=== PATIENT | female | born 1990 | race Caucasian/White ===

== ENCOUNTER 2017-09-24 15:48 | Emergency (ER) | payer MEDICAID ==
--- NOTE | 2017-09-24 16:59 | ED ---
Abdominal Pain HPI - General Chief Complaint: Abdominal Pain Stated Complaint: Abd Pain Time Seen by Provider: 09/24/17 16:03 Source: patient, RN notes reviewed Mode of arrival: ambulatory Limitations: no limitations - History of Present Illness Initial Comments: 27-year-old female presents emergency Department chief complaint right-sided abdominal patient states it started earlier this morning. She states it is that it waxes and wanes and states the pain is very intense at times. Patient' s no history kidney stones. Denies any dysuria, hematuria, urinary frequency. Denies any nausea vomiting diarrhea constipation. She states nothing really makes the pain feel better but states that bending over, makes pain worse. Patient states that she's had 2 prior C-sections and denies any current chest emergency. - Related Data Previous Rx's Medication Instructions Recorded Ciprofloxacin HCl [Cipro] 500 mg PO Q12HR #10 tablet 09/24/17 Allergies Allergy/AdvReac Type Severity Reaction Status Date / Time Penicillins Allergy Rash/Hives Verified 09/24/17 16:20 Review of Systems ROS Statement: Those systems with pertinent positive or pertinent negative responses have been documented in the HPI. ROS Other: All systems not noted in ROS Statement are negative. Past Medical History Past Medical History: No Reported History History of Any Multi-Drug Resistant Organisms: None Reported Past Surgical History: Breast Surgery, Section Past Anesthesia/Blood Transfusion Reactions: No Reported Reaction Past Psychological History: No Psychological Hx Reported Smoking Status: Never smoker Past Alcohol Use History: None Reported Past Drug Use History: None Reported - Past Family History Mother Family Medical History: No Reported History General Exam Limitations: no limitations General appearance: alert, in no apparent distress Head exam: Present: atraumatic, normocephalic, normal inspection Respiratory exam: Present: normal lung sounds bilaterally. Absent: respiratory distress, wheezes, rales, rhonchi, stridor Cardiovascular Exam: Present: regular rate, normal rhythm, normal heart sounds. Absent: systolic murmur, diastolic murmur, rubs, gallop, clicks GI/Abdominal exam: Present: soft, tenderness (Mild right-sided abdominal tenderness), normal bowel sounds. Absent: distended, guarding, rebound, rigid Back exam: Absent: CVA tenderness (R), CVA tenderness (L) Skin exam: Present: warm, dry, intact, normal color. Absent: rash Course Vital Signs 09/24/17 09/24/17 09/24/17 15:53 16:34 18:31 Temperature 98.5 F 97.9 F Pulse Rate 88 76 77 Respiratory 18 17 18 Rate Blood Pressure 182/88 154/86 147/75 O2 Sat by Pulse 98 99 95 Oximetry 09/24/17 19:08 Temperature 98.5 F Pulse Rate 88 Respiratory 16 Rate Blood Pressure 137/74 O2 Sat by Pulse 98 Oximetry Medical Decision Making - Medical Decision Making 27-year-old male present emergency department for abdominal pain. Patient's father UTI CT is negative for acute appendicitis. Patient be discharged. - Lab Data Result diagrams: 09/24/17 17:09 09/24/17 17:09 Lab Results 09/24/17 09/24/17 09/24/17 Range/Units 17:09 17:09 17:09 WBC 9.9 (3.8-10.6) k/uL RBC 5.06 (3.80-5.40) m/uL Hgb 14.6 (11.4-16.0) gm/dL Hct 44.1 (34.0-46.0) % MCV 87.1 (80.0-100.0) fL MCH 28.9 (25.0-35.0) pg MCHC 33.1 (31.0-37.0) g/dL RDW 12.5 (11.5-15.5) % Plt Count 259 (150-450) k/uL Neutrophils % 71 % Lymphocytes % 23 % Monocytes % 4 % Eosinophils % 1 % Basophils % 0 % Neutrophils # 7.0 (1.3-7.7) k/uL Lymphocytes # 2.3 (1.0-4.8) k/uL Monocytes # 0.4 (0-1.0) k/uL Eosinophils # 0.1 (0-0.7) k/uL Basophils # 0.0 (0-0.2) k/uL Sodium 139 (137-145) mmol/L Potassium 4.0 (3.5-5.1) mmol/L Chloride 104 (98-107) mmol/L Carbon Dioxide 25 (22-30) mmol/L Anion Gap 10 mmol/L BUN 14 (7-17) mg/dL Creatinine 0.73 (0.52-1.04) mg/dL Est GFR (MDRD) Af Amer >60 (>60 ml/min/1.73 sqM) Est GFR (MDRD) Non-Af >60 (>60 ml/min/1.73 sqM) Glucose 92 (74-99) mg/dL Calcium 9.6 (8.4-10.2) mg/dL Total Bilirubin 0.4 (0.2-1.3) mg/dL AST 23 (14-36) U/L ALT 30 (9-52) U/L Alkaline Phosphatase 73 (38-126) U/L Total Protein 8.0 (6.3-8.2) g/dL Albumin 4.7 (3.5-5.0) g/dL Amylase 56 (30-110) U/L Lipase 46 (23-300) U/L Urine Color Yellow Urine Appearance Cloudy H (Clear) Urine pH 6.0 (5.0-8.0) Ur Specific [place] 1.022 (1.001-1.035) Urine Protein Trace H (Negative) Urine Glucose (UA) Negative (Negative) Urine Ketones 1+ H (Negative) Urine Blood Trace H (Negative) Urine Nitrite Negative (Negative) Urine Bilirubin Negative (Negative) Urine Urobilinogen <2.0 (<2.0) mg/dL Ur Leukocyte Esterase Small H (Negative) Urine RBC 3 (0-5) /hpf Urine WBC 32 H (0-5) /hpf Ur Squamous Epith Cells 6 H (0-4) /hpf Urine Bacteria Many H (None) /hpf Urine Mucus Occasional H (None) /hpf Urine HCG, Qual (Not Detectd) 09/24/17 Range/Units 17:09 WBC (3.8-10.6) k/uL RBC (3.80-5.40) m/uL Hgb (11.4-16.0) gm/dL Hct (34.0-46.0) % MCV (80.0-100.0) fL MCH (25.0-35.0) pg MCHC (31.0-37.0) g/dL RDW (11.5-15.5) % Plt Count (150-450) k/uL Neutrophils % % Lymphocytes % % Monocytes % % Eosinophils % % Basophils % % Neutrophils # (1.3-7.7) k/uL Lymphocytes # (1.0-4.8) k/uL Monocytes # (0-1.0) k/uL Eosinophils # (0-0.7) k/uL Basophils # (0-0.2) k/uL Sodium (137-145) mmol/L Potassium (3.5-5.1) mmol/L Chloride (98-107) mmol/L Carbon Dioxide (22-30) mmol/L Anion Gap mmol/L BUN (7-17) mg/dL Creatinine (0.52-1.04) mg/dL Est GFR (MDRD) Af Amer (>60 ml/min/1.73 sqM) Est GFR (MDRD) Non-Af (>60 ml/min/1.73 sqM) Glucose (74-99) mg/dL Calcium (8.4-10.2) mg/dL Total Bilirubin (0.2-1.3) mg/dL AST (14-36) U/L ALT (9-52) U/L Alkaline Phosphatase (38-126) U/L Total Protein (6.3-8.2) g/dL Albumin (3.5-5.0) g/dL Amylase (30-110) U/L Lipase (23-300) U/L Urine Color Urine Appearance (Clear) Urine pH (5.0-8.0) Ur Specific [place] (1.001-1.035) Urine Protein (Negative) Urine Glucose (UA) (Negative) Urine Ketones (Negative) Urine Blood (Negative) Urine Nitrite (Negative) Urine Bilirubin (Negative) Urine Urobilinogen (<2.0) mg/dL Ur Leukocyte Esterase (Negative) Urine RBC (0-5) /hpf Urine WBC (0-5) /hpf Ur Squamous Epith Cells (0-4) /hpf Urine Bacteria (None) /hpf Urine Mucus (None) /hpf Urine HCG, Qual Not Detected (Not Detectd) Disposition Clinical Impression: UTI (urinary tract infection), Abdominal pain Disposition: HOME SELF-CARE Condition: Stable Instructions: Abdominal Pain (ED) Additional Instructions: Please return to the Emergency Department if symptoms worsen or any other concerns. Prescriptions: Ciprofloxacin HCl [Cipro] 500 mg PO Q12HR #10 tablet Referrals: Yasmany Ruby MD [Primary Care Provider] - 1-2 days Time of Disposition: 19:18
[2017-09-24 17:30] LABS: Basophils % (A) 0 %; CH 28.6; CHCM 32.9; Eosinophils # (A) 0.1 k/uL (0-0.7); Eosinophils % (A) 1 %; HCT 44.1 % (34.0-46.0); HDW 2.37; HGB 14.6 gm/dL (11.4-16.0); Luc # (Auto) 0.17; Luc % (Auto) 2; Lymphocytes # (A) 2.3 k/uL (1.0-4.8); Lymphocytes % (A) 23 %; MCH 28.9 pg (25.0-35.0); MCHC 33.1 g/dL (31.0-37.0); MCV 87.1 fL (80.0-100.0); Mean Platelet Volume 6.3; Monocytes # (A) 0.4 k/uL (0-1.0); Monocytes % (A) 4 %; Neutrophils % (A) 71 %; RBC 5.06 m/uL (3.80-5.40); RDW 12.5 % (11.5-15.5); WBC 9.9 k/uL (3.8-10.6); WBC (Perox) 9.52
[2017-09-24 17:31] LABS: ALT 30 U/L (9-52); AST 23 U/L (14-36); Alkaline Phosphatase 73 U/L (38-126); Amylase 56 U/L (30-110); Anion Gap 10 mmol/L; Blood Urea Nitrogen 14 mg/dL (7-17); Calcium 9.6 mg/dL (8.4-10.2); Carbon Dioxide 25 mmol/L (22-30); Chloride 104 mmol/L (98-107); Glucose 92 mg/dL (74-99); Non-African American GFR(MDRD) >60 (>60 ml/min/1.73 sqM); Sodium 139 mmol/L (137-145); Total Bilirubin 0.4 mg/dL (0.2-1.3)
[2017-09-24 17:34] LABS: Appearance,Urine Cloudy (Clear); Bacteria,Urine Many /hpf; Bilirubin,Urine Negative (Negative); Glucose,Urine (UA) Negative (Negative); Ketones,Urine 1+ (Negative); Leukocyte Esterase,Urine Small (Negative); Mucus,Urine Occasional /hpf; Nitrite,Urine Negative (Negative); Particle Count 7903; Protein,Urine Trace (Negative); RBC,Urine 3 /hpf (0-5); Specific Gravity,Urine 1.022 (1.001-1.035); Squamous Epithelial Cell,Urine 6 /hpf (0-4); UA Billing (MACRO vs. MICRO) MICRO; Urobilinogen,Urine <2.0 mg/dL (<2.0); WBC,Urine 32 /hpf (0-5)
[2017-09-24] MEDS ORDERED: RX INFO: IV CONTRAST WAS GIVEN 1 EACH MISC MISCELLANE PRN (18:02)
--- NOTE | 2017-09-24 19:08 | CT ---
EXAMINATION TYPE: CT abdomen pelvis w con DATE OF EXAM: 09/24/2017 COMPARISON: NONE HISTORY: RLQ pain with nausea CT DLP: 1779.3 mGycm Automated exposure control for dose reduction was used. TECHNIQUE: Helical acquisition of images was performed from the lung bases through the pelvis. CONTRAST: Performed without Oral Contrast and with IV Contrast, patient injected with 100 mL of Omnipaque 300. FINDINGS: Lung bases are clear. There is no pleural effusion. Liver spleen pancreas gallbladder appear normal. Bile ducts are not dilated. There is no adrenal mass. Kidneys show satisfactory contrast opacification. There is no hydronephrosi s. Uterus is anteverted. There is IUD noted in good position. Bladder distends smoothly. There is no sign of a pelvic mass. There is no free fluid. I see no intestinal wall thickening. There are no dila kulwant loops. Appendix appears normal. I see no bony destructive process. There is no evidence of a pelvic mass. IMPRESSION: NEGATIVE CT SCAN OF THE ABDOMEN AND PELVIS. NORMAL APPENDIX.
[2017-09-24 19:11] VITALS: BP 137/74; PULSE 88; RESP 16; TEMP 98.5
[2017-09-24] MEDS ORDERED: CIPROFLOXACIN HCL 500 MG TAB PO STA (19:17)
== END 2017-09-24 19:29 | disposition home or self-care (01) ==
LOC: EC 15:48
DX: N39.0 Urinary tract infection, site not specified (principal); R10.9 Unspecified abdominal pain; Z88.0 Allergy status to penicillin
CPT/HCPCS: 36415; 80053; 82150; 83690; 85025; 81001; 81025; 74177; 99284; Q9967

== ENCOUNTER 2019-01-06 07:52 | Emergency (ER) | payer MEDICAID ==
[2019-01-06 07:56] VITALS: TEMP 98.5
[2019-01-06] MEDS ORDERED: ALBUTEROL NEBULIZED 2.5 MG/3 ML INHALATION STA (08:04)
[2019-01-06] MEDS ORDERED: SODIUM CHLORIDE 0.9% 1,000 ML IV ONE (08:08)
--- NOTE | 2019-01-06 08:13 | ED ---
URI HPI - General Chief Complaint: Upper Respiratory Infection Stated Complaint: positive flu, chest discomfort Time Seen by Provider: 01/06/19 07:58 Source: patient, RN notes reviewed, old records reviewed Mode of arrival: ambulatory Limitations: no limitations - History of Present Illness Initial Comments: Patient is a 28-year-old female who presents emergency department today with cough congestion for the past 3 days. Patient reports she was diagnosed with influenza A yesterday. She is currently 14 weeks . Patient states that she's had worsening cough and complains of chest tightness taking a deep breath. She reports that her muscles within her chest ache. Patient states that she's had no nausea or vomiting. She denies any changes in urination or bowel habits. She denies any vaginal bleeding fluid leakage or lower abdominal discomfort - Related Data Home Medications Medication Instructions Recorded Confirmed Nyv-Gyxn-Nmhrw Acid 1 cap PO HS 01/06/19 01/06/19 [-U Capsule (formulary)] Previous Rx's Medication Instructions Recorded Albuterol Inhaler [Ventolin Hfa 1 - 2 puff INHALATION RT-Q6H PRN 01/06/19 Inhaler] #1 inhaler Azithromycin [Zithromax Z-pack] 250 mg PO DIRECTED #6 tab 01/06/19 Allergies Allergy/AdvReac Type Severity Reaction Status Date / Time Penicillins Allergy Rash/Hives Verified 01/06/19 08:42 Review of Systems ROS Statement: Those systems with pertinent positive or pertinent negative responses have been documented in the HPI. ROS Other: All systems not noted in ROS Statement are negative. Past Medical History Past Medical History: No Reported History History of Any Multi-Drug Resistant Organisms: None Reported Past Surgical History: Breast Surgery, Section Past Anesthesia/Blood Transfusion Reactions: No Reported Reaction Past Psychological History: No Psychological Hx Reported Smoking Status: Never smoker Past Alcohol Use History: None Reported Past Drug Use History: None Reported - Past Family History Mother Family Medical History: No Reported History General Exam - General Exam Comments Initial Comments: Pleasant 28-year-old female. Alert and oriented 3. No distress. Limitations: no limitations General appearance: alert, in no apparent distress Head exam: Present: atraumatic, normocephalic, normal inspection Eye exam: Present: normal appearance, PERRL, EOMI. Absent: scleral icterus, conjunctival injection, periorbital swelling ENT exam: Present: normal exam, mucous membranes moist Neck exam: Present: normal inspection. Absent: tenderness, meningismus, lymphadenopathy Respiratory exam: Present: wheezes. Absent: normal lung sounds bilaterally, respiratory distress, rales, rhonchi, stridor Cardiovascular Exam: Present: regular rate, normal rhythm, normal heart sounds. Absent: systolic murmur, diastolic murmur, rubs, gallop, clicks GI/Abdominal exam: Present: soft, normal bowel sounds. Absent: distended, tenderness, guarding, rebound, rigid Neurological exam: Present: alert, oriented X3, CN II-XII intact Psychiatric exam: Present: normal affect, normal mood Skin exam: Present: warm, dry, intact, normal color. Absent: rash Course Vital Signs 01/06/19 01/06/19 01/06/19 07:53 08:11 08:14 Temperature 98.5 F Pulse Rate 103 H 96 Respiratory 18 20 Rate Blood Pressure 139/81 O2 Sat by Pulse 98 Oximetry 01/06/19 08:18 Temperature Pulse Rate 92 Respiratory Rate Blood Pressure O2 Sat by Pulse Oximetry Medical Decision Making - Medical Decision Making Patient is a 28-year-old female currently 14 weeks presents emergency department today after being diagnosed with influenza A. She complains of wheezing cough and chest discomfort. Symptoms are related to her coughing and muscle spasms. Patient had Tylenol 2 AM. At this time she does have some wheezing noted. She was given an IV and given a liter bolus. Patient's chest x-ray was reviewed and negative for any acute process. I did discuss with treatment of the flu she has had symptoms for 2 long to benefit from Tamiflu and she is . She denies any concerning symptoms. At this time Patient will be discharged with a prescription for inhaler, no for work. I discussed with the Patient for azithromycin but discussed with and watch and if her cough and fever continue to persist greater than 4 more days that she can start this. Patient agrees to treatment plan will comply. - Radiology Data Radiology results: report reviewed Normal chest x-ray, no acute process noted. Disposition Clinical Impression: Influenza A, Bronchitis Disposition: HOME SELF-CARE Condition: Good Instructions (If sedation given, give patient instructions): Influenza (ED) Additional Instructions: Patient is to rest, increase fluid intake. Return to emergency department if any alarming signs or symptoms occur. Patient can use the nausea medicine as needed and continue to take Tylenol every 4-6 hours. Use albuterol inhaler as necessary. Return to emergency department if any alarming signs or symptoms occur. For starting azithromycin suggest waiting 3-4 days of symptoms continue to persist to start this medication. Prescriptions: Albuterol Inhaler [Ventolin Hfa Inhaler] 1 - 2 puff INHALATION RT-Q6H PRN #1 inhaler PRN Reason: Shortness Of Breath Azithromycin [Zithromax Z-pack] 250 mg PO DIRECTED #6 tab Is patient prescribed a controlled substance at d/c from ED?: No Referrals: Yasmany Ruby MD [Primary Care Provider] - 1-2 days Time of Disposition: 09:04
[2019-01-06] MEDS ORDERED: SODIUM CHLORIDE 0.9% 1,000 ML IV SCH (08:15)
--- NOTE | 2019-01-06 08:40 | XR ---
EXAMINATION TYPE: XR chest 2V DATE OF EXAM: 01/06/2019 COMPARISON: NONE HISTORY: Cough and congestion TECHNIQUE: Frontal and lateral views of the chest are obtained. FINDINGS: There is no focal air space opacity, pleural effusion, or pneumothorax seen. The cardiac silhouette size is within normal limits. The osseous structures are intact. IMPRESSION: No acute cardiopulmonary process.
[2019-01-06] MEDS ORDERED: ACETAMINOPHEN TAB 500 MG TAB PO STA (08:56)
[2019-01-06 09:15] VITALS: BP 121/79; PULSE 78; RESP 18
== END 2019-01-06 09:14 | disposition home or self-care (01) ==
LOC: EC 07:52
DX: O99.512 Diseases of the respiratory system complicating pregnancy, second trimester (principal); J10.1 Influenza due to other identified influenza virus with other respiratory manifestations; Z88.0 Allergy status to penicillin; Z98.890 Other specified postprocedural states; Z3A.14 14 weeks gestation of pregnancy
CPT/HCPCS: 71046; 94640; 96360; 99284

== ENCOUNTER → 2019-04-02 | Outpatient (CLI) | payer MEDICAID | END | disposition home or self-care (01) | LOC: LABWHC1 09:03 | PROVIDERS: ATTEND Obstetrics & Gynecology | DX: Z36.9 Encounter for antenatal screening, unspecified (principal) | CPT/HCPCS: 36415; 82950 ==

== ENCOUNTER → 2019-04-09 | Outpatient (CLI) | payer MEDICAID ==
[2019-04-09 12:04] LABS: Glucose 3 Hour, Gest 98 mg/dL
== END | disposition home or self-care (01) ==
LOC: LABWHC1 07:52
PROVIDERS: ATTEND Obstetrics & Gynecology
DX: O99.810 Abnormal glucose complicating pregnancy (principal); Z3A.00 Weeks of gestation of pregnancy not specified
CPT/HCPCS: 36415; 82951; 82952

== ENCOUNTER 2019-04-17 14:52 | Outpatient (CLI) | payer MEDICAID ==
[2019-04-17 15:18] VITALS: BP 141/84; PULSE 84; RESP 18; TEMP 97.1
--- NOTE | 2019-05-15 10:20 | P.MSEPDOC ---
Presenting Problems - Arrival Data Date of Arrival on Unit: 04/17/19 Time of Arrival on Unit: 14:50 Mode of Transport: Ambulatory - Complaint OB-Reason for Admission/Chief Complaint: Decreased Movement Comment: pt reports less movement than normal. Last movement 1 hour ago Medical History - Information : 3 Para: 2 Term: 2 : 0 Abortions: Spontaneous or Elective: 0 Number of Living Children: 2 - Gestational Age Gestational Age by COLLIN (wks/days): 28 Weeks and 4 Days - History Complications: Prior Review of Systems - Review of Systems Constitutional: No problems Breast: No problems ENT: No problems Cardiovascular: No problems Respiratory: No problems Gastrointestinal: No problems Genitourinary: No problems Musculoskeletal: No problems Neurological: No problems Skin: No problems Vital Signs - Temperature Temperature: 97.1 F Temperature Source: Temporal Artery Scan - Pulse Right Sitting Brachial Pulse Rate: 84 Pulse Assessment Method: Automatic Cuff - Respirations Respiratory Rate: 18 Oxygen Delivery Method: Room Air O2 Sat by Pulse Oximetry: 97 - Blood Pressure Right Calf Sitting Blood Pressure: 141/84 Blood Pressure Mean: 103 Blood Pressure Source: Automatic Cuff Medical Screen Scoring (Pre) - Cervical Exam Dilation: Exam Deferred Effacement: Exam Deferred - Uterine Contractions Frequency: N/A Duration: N/A Intensity: N/A - Maternal Vital Signs Maternal Temperature: N/A Maternal Blood Pressure: N/A Signs of Preeclampsia: N/A Maternal Respirations: N/A - Maternal Trauma Maternal Trauma: N/A - Assessment - Baby A Baseline FHR: 135 Heart Rate - NICHD Category: Category I (Normal) = 0 NST: Reactive Position: N/A Station: N/A - Total Score - Baby A Total Score - Baby A: 0 - Total Score - Baby B Total Score - Baby B: 0 - Total Score - Baby C Total Score - Baby C: 0 - Level of Risk - Baby A Level of Risk - Baby A: Low (0-5) - Level of Risk - Baby B Level of Risk - Baby B: Low (0-5) - Level of Risk - Baby C Level of Risk - Baby C: Low (0-5) - Pain Assessment Pain Scale Used: Numeric (1 - 10) Pain Intensity: 0 Pain Management Goal: 3 Physician Notification (Pre) - Physician Notified Physician Notified Date: 04/17/19 Physician Notified Time: 15:15 Physician/Practitioner Notifed:: Dr Delgado Spoke With: Dr Delgado New Order Received: Yes - Notification Comment Comment: reactive NST. dc home. follow up with Dr Osorio as scheduled. Disposition - Disposition Discharge Date: 04/17/19 Discharge Time: 15:26 I agree with the RN Medical Screening Exam: Yes Risk & Benefit of care provided described in d/c instruction: Yes Diagnosis: RELATED CONDITIONS, UNSPECIFIED, THIRD TRIMESTER
== END 2019-04-17 15:26 | disposition home or self-care (01) ==
LOC: FBPOP 14:52
PROVIDERS: ATTEND Obstetrics & Gynecology
DX: O26.93 Pregnancy related conditions, unspecified, third trimester (principal); Z3A.28 28 weeks gestation of pregnancy
CPT/HCPCS: 59025; 99213

== ENCOUNTER 2019-06-30 09:53 | Inpatient (IN) | payer MEDICAID ==
[2019-06-23 13:40] VITALS: BMI 39.5
[~2019-06-30 09:53] MED LIST: CITRIC ACID-SODIUM CITRATE 15 ML CUP PO ONE; CLINDAMYCIN 600 MG in DEXTROSE 5% IN WATER 50 ML IVPB STA; LACTATED RINGERS 1,000 ML IV ONE
[2019-06-30] MEDS ORDERED: OXYTOCIN 10 UNIT/ML 1 ML VIAL ONE (12:02)
[2019-06-30] MEDS ORDERED: KETOROLAC 30 MG/ML 1 ML VIAL ONE (12:02)
[2019-06-30] MEDS ORDERED: LACTATED RINGERS 1,000 ML BAG IV ONE (12:02)
[2019-06-30] MEDS ORDERED: PHENYLEPHRINE-0.9% NACL SYG 1 MG/10 ML SYRINGE ONE (12:02)
[2019-06-30] MEDS ORDERED: NALBUPHINE 10 MG/ML (1 ML AMP) ONE (12:02)
[2019-06-30] MEDS ORDERED: fentaNYL (PF) 50 MCG/ML 2 ML AMP ONE (12:02)
[2019-06-30] MEDS ORDERED: ONDANSETRON 4 MG/2 ML VIAL ONE (12:02)
[2019-06-30] MEDS ORDERED: MORPHINE SULFATE (PF) 0.3 MG/0.3 ML SYR ONE (12:02)
[2019-06-30 12:23] LABS: Basophils % (A) 0 %; Eosinophils # (A) 0.1 k/uL (0-0.7); Eosinophils % (A) 1 %; HCT 38.6 % (34.0-46.0); HGB 13.1 gm/dL (11.4-16.0); Lymphocytes # (A) 1.8 k/uL (1.0-4.8); Lymphocytes % (A) 21 %; MCH 29.7 pg (25.0-35.0); MCHC 34.1 g/dL (31.0-37.0); MCV 87.2 fL (80.0-100.0); Monocytes # (A) 0.3 k/uL (0-1.0); Monocytes % (A) 4 %; Neutrophils % (A) 72 %; Platelet Count 234 k/uL (150-450); RBC 4.43 m/uL (3.80-5.40); RDW 15.1 % (11.5-15.5); WBC 8.3 k/uL (3.8-10.6)
[2019-06-30] MEDS ORDERED: NALOXONE 0.4 MG/ML 1 ML VIAL IV PRN ×2 (12:32→12:54)
[2019-06-30] MEDS ORDERED: MORPHINE SULFATE 4 MG/ML SYRINGE IVP PRN (12:32)
[2019-06-30] MEDS ORDERED: ONDANSETRON 4 MG/2 ML VIAL IVP PRN ×2 (12:32→12:54)
[2019-06-30] MEDS ORDERED: diphenhydrAMINE 50 MG/ML 1 ML VIAL IVP PRN ×3 (12:32→12:54)
--- NOTE | 2019-06-30 12:52 | P.HPOB ---
History of Present Illness H&P Date: 06/30/19 Chief Complaint: Term , previous section This is a 29-year-old 3 para 2002 woman with an estimated due date of 07/06/2019 who is admitted at 39 weeks gestation for repeat low transverse section. Obstetric history is significant for 2 prior low transverse sections in 2014 and 2016. Her has otherwise been on the uncomplicated. She is known group B strep positive. Laboratory data: Blood type O+, antibody screen negative, rubella immune, VDRL nonreactive, hep Adina surface antigen negative, HIV negative, gonorrhea and clinic cultures negative, diabetes testing within normal limits, group B strep positive. Review of Systems All systems: negative Past Medical History Past Medical History: No Reported History Additional Past Medical History / Comment(s): section 2 History of Any Multi-Drug Resistant Organisms: None Reported Past Surgical History: Breast Surgery, Section Additional Past Surgical History / Comment(s): breast augmentation Past Anesthesia/Blood Transfusion Reactions: No Reported Reaction Past Psychological History: No Psychological Hx Reported Smoking Status: Never smoker Past Alcohol Use History: None Reported Past Drug Use History: None Reported - Past Family History Mother Family Medical History: No Reported History Medications and Allergies Home Medications Medication Instructions Recorded Confirmed Type Awz-Kabk-Mzqou Acid 1 cap PO HS 01/06/19 06/30/19 History [-U Capsule (formulary)] Allergies Allergy/AdvReac Type Severity Reaction Status Date / Time Penicillins Allergy Rash/Hives Verified 06/23/19 13:37 Exam Vital Signs Temp Pulse Resp BP Pulse Ox 06/30/19 10:05 96.7 F L 89 16 140/88 97 Intake and Output 06/29/19 06/30/19 06/30/19 22:59 06:59 14:59 Other: Weight 112.037 kg This is a pleasant, visibly gravid female in no apparent distress. HEENT exam is unremarkable. Her breathing is unlabored and her heart is of regular rate and rhythm. Abdomen is gravid, soft and nontender. heart tones are reassuring by external monitoring and she has no regular cont raction activity. Pelvic examination is deferred. She has trace lower extremity edema. Results Result Diagrams: 06/30/19 10:40 Assessment and Plan (1) 39 weeks gestation of Current Visit: No Status: Acute Code(s): Z3A.39 - 39 WEEKS GESTATION OF SNOMED Code(s): 77835260 (2) History of section Current Visit: No Status: Acute Code(s): Z98.891 - HISTORY OF UTERINE SCAR FROM PREVIOUS SURGERY SNOMED Code(s): 607890153 (3) GBS (group B Streptococcus carrier), +RV culture, currently Current Visit: Yes Status: Acute Code(s): O99.820 - STREPTOCOCCUS B CARRIER STATE COMPLICATING SNOMED Code(s): 1033799699028 Plan: 29-year-old 3 para 2001 woman admitted at 39 weeks gestation for scheduled repeat low transverse section. This procedure has been reviewed with the patient in detail in the office setting throughout the . She understands risks and benefits. Consent has been obtained. status is currently reassuring.
[2019-06-30] MEDS ORDERED: ACETAMINOPHEN TAB 325 MG TAB PO PRN (12:54)
[2019-06-30] MEDS ORDERED: diphenhydrAMINE 25 MG CAP PO PRN (12:54)
[2019-06-30] MEDS ORDERED: ZOLPIDEM 5 MG TAB PO PRN (12:54)
[2019-06-30] MEDS ORDERED: SIMETHICONE 80 MG CHEWABLE PO PRN (12:54)
[2019-06-30] MEDS ORDERED: METOCLOPRAMIDE 5 MG/ML 2 ML VIAL IVP PRN (12:54)
[2019-06-30] MEDS ORDERED: diphenhydrAMINE 50 MG CAP PO PRN (12:54)
--- NOTE | 2019-06-30 12:54 | P.OP ---
Date of Procedure: 06/30/19 Preoperative Diagnosis: 39 weeks gestation History of previous low transverse section 2 Group B strep positive Postoperative Diagnosis: Same Procedure(s) Performed: Repeat low transverse section Anesthesia: spinal Surgeon: Kim Osorio Painter Foreman #1: Enrico Delgado Estimated Blood Loss (ml): 400 IV fluids (ml): 1,300 Urine output (ml): 100 Pathology: none sent Condition: stable Disposition: floor Indications for Procedure: History of previous low transverse section 2 Operative Findings: Male infant in the vertex in the presentation with a nuchal cord 1. Apgars of 8 at 1 minute and 9 at 5 minutes weighing 7 lbs. 0 oz., 3170 g. Thin lower uterine segment with scarring of the midline rectus muscles and bladder. Normal-appearing bilateral fallopian tubes and ovaries. Description of Procedure: After the patient was met preoperatively and all questions were answered, she was taken to the operating room where spinal anesthetic was administered without incident. She was then positioned, prepped and draped in the dorsal supine position with a leftward tilt. Green catheter was placed. After anesthetic was confirmed adequate, a low transverse skin incision was made following the pre- existing scar. This was carried down to the underlying fascia both sharply and with the electrocautery. The fascia was then incised in the midline and extended bilaterally with the العلي scissors. The superior aspect of the fascial incision was elevated and the underlying rectus muscles dissected off sharply and with the electrocautery. The inferior aspect of the fascial incision was also elevated and the underlying rectus muscles dissected off sharply. The muscles were densely adherent in the midline. These were bluntly and the peritoneum was tented up with hemostats. The peritoneum was entered sharply with the Metzenbaum scissors. The peritoneal incision was extended inferiorly and superiorly with good visualization of the bladder. The low uterine segment was extremely thin. The bladder blade was placed. The vesicouterine peritoneum was identified, tented up and entered sharply, the bladder flap was created both sharply and digitally. A low transverse uterine incision was then made sharply and carried down to the underlying amniotic membranes. Membranes were ruptured and clear fluid was noted. The uterine incision was extended bilaterally bluntly. The 's head was delivered from the incision without difficulty. The nose and mouth were bulb suctioned. The rest of the was delivered onto the field without difficulty. And cut and the was taken to the warmer. An intact, three-vessel cord placenta was then manually removed and the uterus was exteriorized. The uterus was cleared of all clot and debris. The uterine incision was delineated with Curran clamps. The uterine incision was then closed in a running locked fashion with 0 Vicryl suture. An imbricating layer was not placed secondary to very thin nature of the inferior aspect of the incision. Hemostasis was noted. The uterus was then returned to the abdomen and the gutters were cleared of all clot and debris. The uterine incision was reinspected and Bovie electrocautery was utilized were necessary for hemostasis. The fascial edges, peritoneal edges and rectus muscles were inspected and Bovie electrocautery utilized were necessary for hemostasis. The fascia was then closed in a running fashion with 0 Vicryl suture. The subcuticular tissue was copiously suction irrigated and Bovie electrocautery utilized were necessary for hemostasis. 3-0 Vicryl suture was utilized to reapproximate the subcuticular tissue. The skin was then closed in a subcutaneous fashion with 4-0 Vicryl suture. All counts reported to me as correct by the operating room staff at the end of the procedure. The patient received antibiotics preoperatively and Pitocin following cord clamp. Mother and were both transported from the room in stable condition.
[2019-06-30] MEDS ORDERED: OXYTOCIN 20 UNITS/1000 ML NS 1,000 ML IV SCH (13:00)
[2019-06-30] MEDS: LACTATED RINGERS 1,000 ML IV SCH ×3 (13:48→16:30)
[2019-06-30] MEDS: SENNOSIDES-DOCUSATE SODIUM 1 EACH TAB PO SCH (21:15)
[2019-06-30] MEDS: KETOROLAC 30 MG/ML 1 ML VIAL IVP PRN (22:46)
[2019-07-01] MEDS: LACTATED RINGERS 1,000 ML IV SCH ×2 (02:00)
[2019-07-01] MEDS: KETOROLAC 30 MG/ML 1 ML VIAL IVP PRN (06:14)
--- NOTE | 2019-07-01 06:57 | P.PN ---
Progress Note - Text Progress Note Date: 07/01/19 Pt without complaints. Ambulating without paresthesia or weakness. Denies headache. Pain controlled. Pruritis treated. VSS Back - spinal site clean and dry A/P POD#1 s/p with spinal duramorph - doing well
[2019-07-01] MEDS: SENNOSIDES-DOCUSATE SODIUM 1 EACH TAB PO SCH ×2 (07:42→19:33)
[2019-07-01 08:28] LABS: Basophils % (A) 0 %; Eosinophils # (A) 0.1 k/uL (0-0.7); Eosinophils % (A) 1 %; HCT 35.8 % (34.0-46.0); HGB 12.1 gm/dL (11.4-16.0); Lymphocytes # (A) 1.5 k/uL (1.0-4.8); Lymphocytes % (A) 13 %; MCH 29.1 pg (25.0-35.0); MCHC 33.6 g/dL (31.0-37.0); MCV 86.6 fL (80.0-100.0); Mean Platelet Volume 6.8; Monocytes # (A) 0.5 k/uL (0-1.0); Monocytes % (A) 4 %; Neutrophils # (A) 9.2 k/uL (1.3-7.7); Neutrophils % (A) 81 %; Platelet Count 237 k/uL (150-450); RBC 4.14 m/uL (3.80-5.40); RDW 14.5 % (11.5-15.5); WBC 11.5 k/uL (3.8-10.6)
--- NOTE | 2019-07-01 09:25 | P.PNOBGPC ---
Subjective - Subjective Principal diagnosis: POD 1 Interval history: Feeling great, minimal pain, no difficulty voiding with catheter out. Breast- feeding successfully. Patient reports: Reports appetite normal, Reports voiding normally, Reports pain well controlled, Reports ambulating normally, Denies dizzy ambulation, Denies nauseated : doing well, nursing well Objective - Vital Signs Latest vital signs: Vital Signs Temp Pulse Resp BP Pulse Ox 07/01/19 08:00 97.8 F 71 18 137/65 97 07/01/19 06:00 18 07/01/19 04:00 97.9 F 80 16 113/57 97 07/01/19 01:00 98.4 F 77 18 114/61 96 07/01/19 00:00 98.4 F 77 18 114/61 96 06/30/19 22:55 16 06/30/19 21:00 20 98 06/30/19 20:00 98 F 65 18 120/78 99 06/30/19 19:00 18 06/30/19 17:00 18 06/30/19 15:10 97.9 F 70 16 136/65 06/30/19 14:52 85 16 151/62 06/30/19 14:22 80 16 130/76 06/30/19 13:52 90 16 132/74 98 06/30/19 13:37 78 16 130/77 98 06/30/19 13:22 82 16 131/75 98 06/30/19 13:07 87 16 127/78 97 06/30/19 12:52 96.5 F L 85 16 136/79 97 06/30/19 10:05 96.7 F L 89 16 140/88 97 Intake and Output 06/30/19 07/01/19 07/01/19 22:59 06:59 14:59 Intake Total 600 Output Total 2100 400 Balance -2100 -400 600 Intake: Oral 600 Output: Urine 2100 400 Uretheral (Green) 1600 Other: # Voids 1 2 - Exam Extremities: Present: normal, edema (Trace) Abdomen: Present: normal appearance, soft Incision: Present: normal, dry, intact, other (Small area with blisters on left lateral edge where tape was applied. Incision itself looks good.) Uterus: Present: normal, firm. Absent: tenderness - Labs Labs: Abnormal Lab Results - Last 24 Hours (Table) 09/06/19 Range/Units 06:43 WBC 11.5 H (3.8-10.6) k/uL Neutrophils # 9.2 H (1.3-7.7) k/uL Assessment and Plan (1) 39 weeks gestation of Current Visit: No Status: Acute Code(s): Z3A.39 - 39 WEEKS GESTATION OF SNOMED Code(s): 50384719 (2) History of section Current Visit: No Status: Acute Code(s): Z98.891 - HISTORY OF UTERINE SCAR FROM PREVIOUS SURGERY SNOMED Code(s): 782171803 (3) GBS (group B Streptococcus carrier), +RV culture, currently Current Visit: Yes Status: Acute Code(s): O99.820 - STREPTOCOCCUS B CARRIER STATE COMPLICATING SNOMED Code(s): 5699388855814 Plan: Postop day 1 status post repeat low transverse section. Recovering well. Anticipate discharge home tomorrow.
[2019-07-01] MEDS: IBUPROFEN 600 MG TAB PO PRN ×2 (12:21→19:32)
[2019-07-01] MEDS: HYDROcodone/APAP 5-325MG 1 EACH TAB PO PRN ×2 (15:24→22:25)
[2019-07-01 17:01] VITALS: RESP 18
[2019-07-02] MEDS: HYDROcodone/APAP 5-325MG 1 EACH TAB PO PRN ×2 (02:28→06:35)
[2019-07-02] MEDS: SENNOSIDES-DOCUSATE SODIUM 1 EACH TAB PO SCH (10:13)
[2019-07-02 10:16] VITALS: BP 133/73; PULSE 83; TEMP 98
--- NOTE | 2019-07-02 10:40 | P.DS ---
Providers Date of admission: 06/30/19 09:53 Expected date of discharge: 07/02/19 Attending physician: Kim Osorio Primary care physician: Stated None Hospital Course: This is a 29-year-old white female 3 para 2002 she presented on 07/06/2019 at 39 and one sevenths weeks for scheduled repeat low transverse section. was also noted to be breech in presentation. otherwise unremarkable, positive group B strep cultures, rubella status immune, blood type O+. Please see dictated history and physical for details. Patient underwent a repeat low transverse section and gave to a liveborn male , scores 8 and 9 at one and 5 minutes respectively. He weighed 3170 g or 7 lbs. 0 oz. Surgery was essentially unremarkable, please see dictated operative note for details. This morning the patient and her son are both doing well. Circumcision has been performed and discharge has been granted per solar energy system installer. The patient's incision is clean and dry, intact, Steri-Strips applied. Fundus is firm and in the midline, symmetric, 18 week size, nontender. Extremities are negative for edema. Blood pressure has normalized. Breasts are not engorged. Patient is breast-feeding without issues. She is judged to be in very good condition for discharge home. Patient will follow-up with Dr. Osorio in the office in 2 weeks for incision check. I have reminded her no intercourse, tampons or douching. She will take [id number] Advil or Aleve, or Motrin tablets, 200 mg pills, 3 every 6 hours as needed. She will continue taking her vitamin daily. She will call with any fevers shakes or chills, foul smelling or copious lochia, with the passage of large blood clots, with any pain not alleviated by [id number] products, or indeed with any concerns. Baby will follow up with solar energy system installer as recommended. Patient Condition at Discharge: Good Plan - Discharge Summary Discharge Rx Participant: No New Discharge Prescriptions: No Action [id number] Acid [-U Capsule (formulary)] 1 cap PO HS Discharge Medication List Utu-Utru-Ptcvm Acid [-U Capsule (formulary)] 1 cap PO HS 01/06/19 [History] Follow up Appointment(s)/Referral(s): Kim Osorio MD [STAFF PHYSICIAN] - 2 Weeks Discharge Disposition: HOME SELF-CARE
[2019-07-02] MEDS: IBUPROFEN 600 MG TAB PO PRN (10:55)
== END 2019-07-02 11:14 | disposition home or self-care (01) | DRG 788 ==
LOC: 4FBP 09:53
PROVIDERS: ADMIT Obstetrics & Gynecology; ATTEND Obstetrics & Gynecology
PROC: 10D00Z1 Extraction of Products of Conception, Low, Open Approach (ICD-10-PCS; principal; 2019-06-30 12:00)
DX: O34.211 Maternal care for low transverse scar from previous cesarean delivery (principal); O99.824 Streptococcus B carrier state complicating childbirth; O69.81X0 Labor and delivery complicated by cord around neck, without compression, not applicable or unspecified; N85.8 Other specified noninflammatory disorders of uterus; Z37.0 Single live birth; Z3A.39 39 weeks gestation of pregnancy; L29.9 Pruritus, unspecified; Z79.899 Other long term (current) drug therapy; Z98.82 Breast implant status; Z88.0 Allergy status to penicillin
CPT/HCPCS: 85025; 86850; 86900; 86901

== ENCOUNTER 2020-11-07 09:14 | Emergency (ER) | payer MEDICAID ==
[2020-11-07 09:21] VITALS: RESP 18; TEMP 99.5
[2020-11-07] MEDS ORDERED: KETOROLAC 15 MG/ML 1 ML VIAL IVP STA (09:41)
[2020-11-07] MEDS ORDERED: SODIUM CHLORIDE 0.9% 500 ML 500 ML IV STA (09:41)
[2020-11-07 10:01] LABS: Basophils % (A) 0 %; Eosinophils # (A) 0.2 k/uL (0-0.7); Eosinophils % (A) 1 %; HCT 42.3 % (34.0-46.0); HGB 14.3 gm/dL (11.4-16.0); Lymphocytes # (A) 1.5 k/uL (1.0-4.8); Lymphocytes % (A) 13 %; MCH 29.1 pg (25.0-35.0); MCHC 33.8 g/dL (31.0-37.0); MCV 86.2 fL (80.0-100.0); Mean Platelet Volume 6.4; Monocytes # (A) 0.4 k/uL (0-1.0); Monocytes % (A) 3 %; Neutrophils # (A) 9.5 k/uL (1.3-7.7); Neutrophils % (A) 81 %; Platelet Count 253 k/uL (150-450); RDW 12.9 % (11.5-15.5); WBC 11.7 k/uL (3.8-10.6)
[2020-11-07 10:10] LABS: ALT 23 U/L (4-34); AST 20 U/L (14-36); African American GFR (CKD) >90 (>60 ml/min/1.73 sqM); Albumin 4.6 g/dL (3.5-5.0); Alkaline Phosphatase 58 U/L (38-126); Amylase 54 U/L (30-110); Anion Gap 8 mmol/L; Blood Urea Nitrogen 15 mg/dL (7-17); Calcium 9.4 mg/dL (8.4-10.2); Carbon Dioxide 26 mmol/L (22-30); Chloride 103 mmol/L (98-107); Glucose 114 mg/dL (74-99); Lipase 39 U/L (23-300); Non-African American GFR(CKD) >90 (>60 ml/min/1.73 sqM); Potassium 4.3 mmol/L (3.5-5.1); Sodium 137 mmol/L (137-145); Total Bilirubin 0.6 mg/dL (0.2-1.3); Total Protein 7.6 g/dL (6.3-8.2)
[2020-11-07 10:13] LABS: Appearance,Urine Clear (Clear); Bilirubin,Urine Negative (Negative); Blood,Urine Large (Negative); Budding Yeast,Urine Rare /hpf; Color,Urine Yellow; Glucose,Urine (UA) Negative (Negative); Ketones,Urine Negative (Negative); Leukocyte Esterase,Urine Negative (Negative); Mucus,Urine Rare /hpf; Nitrite,Urine Negative (Negative); PH, Urine 5.5 (5.0-8.0); Protein,Urine Trace (Negative); RBC,Urine >182 /hpf (0-5); Squamous Epithelial Cell,Urine 1 /hpf (0-4); Urobilinogen,Urine <2.0 mg/dL (<2.0); WBC,Urine 1 /hpf (0-5)
--- NOTE | 2020-11-07 10:27 | CT ---
EXAMINATION TYPE: CT abdomen pelvis w con DATE OF EXAM: 11/07/2020 HISTORY: Left lower abdominal pain, abn US CT DLP: 1532.2mGycm Automated Exposure Control for Dose Reduction was Utilized. CONTRAST: CT scan of the abdomen and pelvis is performed without oral but with IV Contrast, patient injected wi th 100 mL of Isovue 300. COMPARISON: CT abdomen and pelvis September 24, 2017 FINDINGS: LUNG BASES: Partial visualization of bilateral breast implants similar to prior. LIVER/GB: No significant abnormality is appreciated. PANCREAS: No significant abnormality is seen. SPLEEN: No significant abnormality is seen. ADRENALS: No significant abnormality is seen. KIDNEYS: Symmetric cortical medullary uptake and excretion from both kidneys without concerning renal mass or hydronephrosis seen bilaterally. BOWEL: Suboptimal evaluation bowel without enteric contrast. No suspicious small or large bowel dilat ation. Ebxu-ff-zejkvrte concentric wall thickening in the distal one third of the transverse colon th rough the splenic flexure into the proximal one half of the left colon without surrounding inflammato ry change. There is focal abnormal wall thickening near junction of left and sigmoid colon with more severe wall thickening in the proximal sigmoid colon showing mild to moderate surrounding ill-defined fluid and fat stranding, small diverticulum is suspected along posterior portion proximal sigmoid co marci axial image 69 corresponding to coronal image 44. Findings consistent with acute diverticulitis. No well-formed fluid collection or drainable abscess. No free air. UTERUS/ADNEXA: Anteverted uterus projects to the right of midline. Normal-sized left ovary axial imag e 70 and poor visualization of right ovary from adjacent bowel loops. Small to moderate amount of wilfrid e fluid in the pelvic cul-de-sac extending to the right axial image 77. Tubular shaped low density st ructure in the vaginal canal consistent with a tampon is incidentally noted. LYMPH NODES: No greater than 1cm abdominal or pelvic lymph nodes are appreciated. OSSEOUS STRUCTURES: 6 lumbar type vertebra redemonstrated. OTHER: No significant additional abnormality is seen. IMPRESSION: CT findings consistent with a fairly moderate but uncomplicated acute colitis suspected f ocal diverticulitis centered in the proximal sigmoid colon of the left upper to mid pelvis. Additiona l mild area of uncomplicated acute colitis near splenic flexure is not excluded.
--- NOTE | 2020-11-07 10:33 | ED ---
Abdominal Pain HPI - General Chief Complaint: Abdominal Pain Stated Complaint: LLQ pain Time Seen by Provider: 11/07/20 09:23 Source: patient Mode of arrival: ambulatory Limitations: no limitations - History of Present Illness Initial Comments: Patient is a 30-year-old female presenting to emergency Department with complaints of left lower quadrant abdominal pain that started last night. Patient states it pain started after she cannot her last night. She's been having some nausea as well. Patient was able to come to work this morning but the pain has been steadily increasing. She continues to feel nauseous, no vomiting. She had a regular bowel movement this morning, and no change in her symptoms. She currently rates the pain a 6/10. She states when she moves around it increases the pain. She denies any chest pain, shortness of breath. She denies any fever or chills. She admits to history of 3 C-sections, no other abdominal surgeries. She denies history of diverticulitis, kidney stones. She denies being secondary to currently being on her menstrual cycle as well as having a vasectomy. She denies any dysuria. She has no further complaints at this time. Upon arrival to the ER, her temperature is 99.5, pulse is 101, rest of vitals are normal. - Related Data Home Medications Medication Instructions Recorded Confirmed Multivitamins, Thera [Multivitamin 1 tab PO HS 11/07/20 11/07/20 (formulary)] Previous Rx's Medication Instructions Recorded Ciprofloxacin HCl [Cipro] 500 mg PO BID 7 Days #14 tab 11/07/20 metroNIDAZOLE [Flagyl] 500 mg PO TID 7 Days #21 tab 11/07/20 Allergies Allergy/AdvReac Type Severity Reaction Status Date / Time Penicillins Allergy Rash/Hives Verified 11/07/20 09:58 Review of Systems ROS Statement: Those systems with pertinent positive or pertinent negative responses have been documented in the HPI. ROS Other: All systems not noted in ROS Statement are negative. Past Medical History Past Medical History: No Reported History Additional Past Medical History / Comment(s): section 3 History of Any Multi-Drug Resistant Organisms: None Reported Past Surgical History: Breast Surgery, Section Additional Past Surgical History / Comment(s): breast augmentation Past Anesthesia/Blood Transfusion Reactions: No Reported Reaction Past Psychological History: No Psychological Hx Reported Smoking Status: Never smoker Past Alcohol Use History: None Reported Past Drug Use History: None Reported - Past Family History Mother Family Medical History: No Reported History General Exam - General Exam Comments Initial Comments: GENERAL: Patient is well-developed and well-nourished. Patient is nontoxic and in no acute distress. HEAD: Atraumatic, normocephalic. EYES: Pupils equal round and reactive to light, extraocular movements intact, sclera anicteric, conjunctiva are normal. Eyelids were unremarkable. ENT: TMs normal, nares patent, oropharynx clear without exudates. Moist mucous membranes. NECK: Normal range of motion, supple without lymphadenopathy or JVD. LUNGS: Unlabored respirations. Breath sounds clear to auscultation bilaterally and equal. No wheezes rales or rhonchi. HEART: Regular rate and rhythm without murmurs, rubs or gallops. ABDOMEN: Tender in the left lower quadrant. Positive guarding. Soft, normoactive bowel sounds. No masses appreciated. : Deferred MUSCULOSKELETAL: Normal extremities with adequate strength and normal range of motion, no pitting or edema. No clubbing or cyanosis. NEUROLOGICAL: Patient is alert and oriented x 3. Motor and sensory are also intact. Cranial nerves II through XII grossly intact. Symmetrical smile. Normal speech, normal gait. PSYCH: Normal mood, normal affect. SKIN: Warm, Dry, normal turgor, no rashes or lesions noted. Limitations: no limitations Course Vital Signs 11/07/20 09:17 Temperature 99.5 F Pulse Rate 101 H Respiratory 18 Rate Blood Pressure 142/97 Medical Decision Making - Medical Decision Making Patient is a 30-year-old female presenting with left lower quadrant pain that started last night. She admits nausea, no vomiting, no fevers. Her temperature today is 99.5. Patient is very tender in the left lower quadrant. Labs shows slight leukocytosis of 11.7, rest of labs are unremarkable, lactic acid is 0.7. Urine shows evidence of blood, no signs of infection, she is on her menstrual cycle. CT of the abdomen and pelvis show evidence of a moderate uncomplicated acute diverticulitis, colitis. No other acute findings. Patient was given some fluids and Toradol the ER Has been resting comfortably. I will start patient on Flagyl and Cipro for diverticulitis. Patient is stable for discharge. She can follow up with her regular doctor. Return parameters were discussed with the patient and she verbalized understanding. Case discussed with Dr. Lo. - Lab Data Result diagrams: 11/07/20 09:48 11/07/20 09:48 Lab Results 11/07/20 11/07/20 11/07/20 Range/Units 09:48 09:48 09:48 WBC 11.7 H (3.8-10.6) k/uL RBC 4.90 (3.80-5.40) m/uL Hgb 14.3 (11.4-16.0) gm/dL Hct 42.3 (34.0-46.0) % MCV 86.2 (80.0-100.0) fL MCH 29.1 (25.0-35.0) pg MCHC 33.8 (31.0-37.0) g/dL RDW 12.9 (11.5-15.5) % Plt Count 253 (150-450) k/uL MPV 6.4 Neutrophils % 81 % Lymphocytes % 13 % Monocytes % 3 % Eosinophils % 1 % Basophils % 0 % Neutrophils # 9.5 H (1.3-7.7) k/uL Lymphocytes # 1.5 (1.0-4.8) k/uL Monocytes # 0.4 (0-1.0) k/uL Eosinophils # 0.2 (0-0.7) k/uL Basophils # 0.0 (0-0.2) k/uL Sodium (137-145) mmol/L Potassium (3.5-5.1) mmol/L Chloride (98-107) mmol/L Carbon Dioxide (22-30) mmol/L Anion Gap mmol/L BUN (7-17) mg/dL Creatinine (0.52-1.04) mg/dL Est GFR (CKD-EPI)AfAm (>60 ml/min/1.73 sqM) Est GFR (CKD-EPI)NonAf (>60 ml/min/1.73 sqM) Glucose (74-99) mg/dL Plasma Lactic Acid Terrance (0.7-2.0) mmol/L Calcium (8.4-10.2) mg/dL Total Bilirubin (0.2-1.3) mg/dL AST (14-36) U/L ALT (4-34) U/L Alkaline Phosphatase (38-126) U/L Total Protein (6.3-8.2) g/dL Albumin (3.5-5.0) g/dL Amylase (30-110) U/L Lipase (23-300) U/L Urine Color Yellow Urine Appearance Clear (Clear) Urine pH 5.5 (5.0-8.0) Ur Specific [place] 1.020 (1.001-1.035) Urine Protein Trace H (Negative) Urine Glucose (UA) Negative (Negative) Urine Ketones Negative (Negative) Urine Blood Large H (Negative) Urine Nitrite Negative (Negative) Urine Bilirubin Negative (Negative) Urine Urobilinogen <2.0 (<2.0) mg/dL Ur Leukocyte Esterase Negative (Negative) Urine RBC >182 H (0-5) /hpf Urine WBC 1 (0-5) /hpf Ur Squamous Epith Cells 1 (0-4) /hpf Urine Mucus Rare H (None) /hpf Urine Yeast (Budding) Rare H (None) /hpf Urine HCG, Qual Not Detected (Not Detectd) 11/07/20 11/07/20 Range/Units 09:48 09:49 WBC (3.8-10.6) k/uL RBC (3.80-5.40) m/uL Hgb (11.4-16.0) gm/dL Hct (34.0-46.0) % MCV (80.0-100.0) fL MCH (25.0-35.0) pg MCHC (31.0-37.0) g/dL RDW (11.5-15.5) % Plt Count (150-450) k/uL MPV Neutrophils % % Lymphocytes % % Monocytes % % Eosinophils % % Basophils % % Neutrophils # (1.3-7.7) k/uL Lymphocytes # (1.0-4.8) k/uL Monocytes # (0-1.0) k/uL Eosinophils # (0-0.7) k/uL Basophils # (0-0.2) k/uL Sodium 137 (137-145) mmol/L Potassium 4.3 (3.5-5.1) mmol/L Chloride 103 (98-107) mmol/L Carbon Dioxide 26 (22-30) mmol/L Anion Gap 8 mmol/L BUN 15 (7-17) mg/dL Creatinine 0.63 (0.52-1.04) mg/dL Est GFR (CKD-EPI)AfAm >90 (>60 ml/min/1.73 sqM) Est GFR (CKD-EPI)NonAf >90 (>60 ml/min/1.73 sqM) Glucose 114 H (74-99) mg/dL Plasma Lactic Acid Terrance 0.7 (0.7-2.0) mmol/L Calcium 9.4 (8.4-10.2) mg/dL Total Bilirubin 0.6 (0.2-1.3) mg/dL AST 20 (14-36) U/L ALT 23 (4-34) U/L Alkaline Phosphatase 58 (38-126) U/L Total Protein 7.6 (6.3-8.2) g/dL Albumin 4.6 (3.5-5.0) g/dL Amylase 54 (30-110) U/L Lipase 39 (23-300) U/L Urine Color Urine Appearance (Clear) Urine pH (5.0-8.0) Ur Specific [place] (1.001-1.035) Urine Protein (Negative) Urine Glucose (UA) (Negative) Urine Ketones (Negative) Urine Blood (Negative) Urine Nitrite (Negative) Urine Bilirubin (Negative) Urine Urobilinogen (<2.0) mg/dL Ur Leukocyte Esterase (Negative) Urine RBC (0-5) /hpf Urine WBC (0-5) /hpf Ur Squamous Epith Cells (0-4) /hpf Urine Mucus (None) /hpf Urine Yeast (Budding) (None) /hpf Urine HCG, Qual (Not Detectd) Disposition Clinical Impression: Diverticulitis, Nausea Disposition: HOME SELF-CARE Condition: Stable Instructions (If sedation given, give patient instructions): Diverticulitis (ED) Additional Instructions: Please return to the Emergency Department if symptoms worsen or any other concerns. Take both antibiotics as prescribed. Please finish entire course. Do not drink alcohol with these medications. Please follow-up with your regular physician. Prescriptions: Ciprofloxacin HCl [Cipro] 500 mg PO BID 7 Days #14 tab metroNIDAZOLE [Flagyl] 500 mg PO TID 7 Days #21 tab Is patient prescribed a controlled substance at d/c from ED?: No Referrals: None,Stated [Primary Care Provider] - 1-2 days
[2020-11-07 11:07] VITALS: BP 133/79; PULSE 91
== END 2020-11-07 11:02 | disposition home or self-care (01) ==
LOC: EC 09:14
DX: K57.32 Diverticulitis of large intestine without perforation or abscess without bleeding (principal); R11.0 Nausea; Z88.0 Allergy status to penicillin
CPT/HCPCS: 36415; 80053; 82150; 83605; 83690; 85025; 81001; 81025; 74177; 99284; 96374; 96361; J1885; Q9967

== ENCOUNTER 2020-12-19 05:21 | Emergency (ER) | payer MEDICAID ==
[2020-12-19 05:30] VITALS: TEMP 97.8
[2020-12-19] MEDS ORDERED: predniSONE 20 MG TAB PO STA (06:28)
[2020-12-19] MEDS ORDERED: GABAPENTIN 300 MG CAP PO STA (06:28)
[2020-12-19] MEDS ORDERED: MORPHINE SULFATE 2 MG/ML SYRINGE IM STA (06:28)
[2020-12-19] MEDS ORDERED: ACET/COD 300 MG/30 MG STARTER PACK 6 TAB BTL PO STA (07:35)
[2020-12-19] MEDS ORDERED: HYDROmorphone 0.5 MG/0.5 ML SYRINGE IM STA (07:35)
--- NOTE | 2020-12-19 07:38 | ED ---
Extremity Problem HPI - General Chief complaint: Extremity Problem,Nontraumatic Stated complaint: Shoulder Pain Time Seen by Provider: 12/19/20 06:05 Source: patient Mode of arrival: ambulatory Limitations: no limitations - History of Present Illness Initial comments: 30yo female presenting for left sided neck, shoulder pain that radiates down the left arm. Patient states for the past 2 days she noticed left shoulder pain that radiated up the neck and down the arm. Describes pain as very sharp, electrifying. States increases and is shock like with ROM of the right shoulder. Alla falls/trauma/previous neck or shoulder injuries. 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 Patient denies midline or anterior neck pain. Patient denies additional complaints. - Related Data Home Medications Medication Instructions Recorded Confirmed Multivitamins, Thera [Multivitamin 1 tab PO HS 11/07/20 11/07/20 (formulary)] Previous Rx's Medication Instructions Recorded Ciprofloxacin HCl [Cipro] 500 mg PO BID 7 Days #14 tab 11/07/20 metroNIDAZOLE [Flagyl] 500 mg PO TID 7 Days #21 tab 11/07/20 Gabapentin 300 mg PO BID 3 Days #6 cap 12/19/20 predniSONE 50 mg PO DAILY 4 Days #4 tab 12/19/20 Allergies Allergy/AdvReac Type Severity Reaction Status Date / Time Penicillins Allergy Rash/Hives Verified 12/19/20 05:30 Review of Systems ROS Statement: Those systems with pertinent positive or pertinent negative responses have been documented in the HPI. ROS Other: All systems not noted in ROS Statement are negative. Past Medical History Past Medical History: No Reported History Additional Past Medical History / Comment(s): section 3 History of Any Multi-Drug Resistant Organisms: None Reported Past Surgical History: Breast Surgery, Section Additional Past Surgical History / Comment(s): breast augmentation Past Anesthesia/Blood Transfusion Reactions: No Reported Reaction Past Psychological History: No Psychological Hx Reported Smoking Status: Never smoker Past Alcohol Use History: Rare Past Drug Use History: None Reported - Past Family History Mother Family Medical History: No Reported History General Exam - General Exam Comments Initial Comments: General: The patient is awake and alert, in no distress, and does not appear acutely ill. Eye: Pupils are equal, round and reactive to light, extra-ocular movements are intact. No nystagmus. There is normal conjunctiva bilaterally. No signs of icterus. Ears, nose, mouth and throat: There are moist mucous membranes and no oral lesions. Neck: The neck is supple, there is no tenderness or JVD. No midline tenderness to palpation of the cervical spine. Cardiovascular: There is a regular rate and rhythm. No murmur, rub or gallop is appreciated. Respiratory: Lungs are clear to auscultation, respirations are non-labored, breath sounds are equal. No wheezes, stridor, rales, or rhonchi. Musculoskeletal: Normal shoulder inspection, severe pain wtih overhead ROM of the left shoulder. states shocking. Normal ROM, no tenderness at elbow/wrist. Strength 5/5 of the UE b/l. Sensation intact of the UE b/l. Radial pulses equal bilaterally 2+. Neurological: A&O x 3. CN II-XII intact grossly, There are no obvious motor or sensory deficits. Coordination appears grossly intact. Speech is normal. Skin: Skin is warm and dry and no rashes or lesions are noted. Psychiatric: Cooperative, appropriate mood & affect, normal judgment. Limitations: no limitations Course Vital Signs 12/19/20 12/19/20 12/19/20 05:24 05:43 07:48 Temperature 97.8 F 97.8 F Pulse Rate 85 79 Respiratory 18 16 Rate Blood Pressure 176/138 145/90 142/87 O2 Sat by Pulse 98 99 Oximetry Medical Decision Making - Medical Decision Making Patient symptoms/PE appear clinically consistent wtih a nerve impingement syndrome vs radiculopathy. Patient has normal strength, sensation. No midline neck pain. 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 No falls/direct injuries. Patient given symptomatic treatment in ER with slight improvement. Discussed this will take time and importance of orthopedic f/u. patient states she will try to arrange f/u as soon as she leave. patient provided gabapentin/tylenol#3 on discharge, appropriate use/risks discussed. pt discharged appearing well Dr Milton attending physician Disposition Clinical Impression: Radiculopathy, Left arm pain, Left shoulder pain, Neck pain on left side Disposition: HOME SELF-CARE Condition: Good Instructions (If sedation given, give patient instructions): Cervical Radiculopathy (ED) Additional Instructions: Please use medication as discussed. Please follow-up with orthopedic surgery as soon as possible. PCP in 1-2 days[address] 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 Please return to emergency room if the symptoms increase or worsen or for any other concerns. Prescriptions: Gabapentin 300 mg PO BID 3 Days #6 cap predniSONE 50 mg PO DAILY 4 Days #4 tab Is patient prescribed a controlled substance at d/c from ED?: No Referrals: None,Stated [Primary Care Provider] - 1-2 days Elvira Kingsley, [Doctor of Osteopathic Medicine] - 1-2 days Time of Disposition: 07:38
[2020-12-19 07:50] VITALS: BP 142/87; PULSE 79; RESP 16
== END 2020-12-19 07:48 | disposition home or self-care (01) ==
LOC: EC 05:21
DX: M54.10 Radiculopathy, site unspecified (principal); M54.2 Cervicalgia; M25.512 Pain in left shoulder; Z88.0 Allergy status to penicillin
CPT/HCPCS: 99283; 96372 ×2; J2270; J7512; J1170

== ENCOUNTER → 2020-12-19 | Outpatient (CLI) | payer MEDICAID ==
--- NOTE | 2020-12-19 16:34 | MR ---
EXAMINATION TYPE: MR cervical spine wo con DATE OF EXAM: 12/19/2020 COMPARISON: None HISTORY: 30-year-old female Severe new left arm pain/numbness TECHNIQUE: Multiplanar, multisequence images of the cervical spine were acquired. Additional PD sagit dorcas sequence was performed. FINDINGS: There are mild early intervertebral disc desiccation. Mild facet arthropathy mid to lower cervical spine. No craniocervical joint abnormality, predental space widening, or prevertebral soft tissue swelling. Straightening of the normal cervical lordosis but with preserved alignment. There is a component of mild congenital spinal canal narrowing in the cervical spine with AP canal di mension of 1.0 to 1.1 cm. From C2 through C5 levels, no spinal canal or foraminal stenosis. At C5-C6, there is posterior broad-based disc bulge with superimposed large focal left paracentral di sc extrusion with annular fissure. This abuts and indents the left ventral cord causing a left latera l recess stenosis and overall more moderate spinal canal stenosis. There is moderate to severe narrow ing of the left neuroforamen at this level. Again, left lateral recess stenosis is noted. At C6/C7, posterior disc bulge abutting the ventral cord. Mild spinal canal stenosis. Mild facet arth ropathy. No significant neural foraminal stenosis. At C7-T1, no significant canal or foraminal stenosis. No abnormal T2-weighted cord signal abnormality. IMPRESSION: 1. At C5-C6, there is a posterior disc bulge and superimposed large focal left paracentral disc bryan iation containing an annular fissure. This contributes to a moderate overall spinal canal stenosis an d left lateral recess stenosis, focally indenting the left ventral cord. 2. Along with the left lateral recess stenosis, this also contributes to a moderate to severe left C5 -C6 neuroforaminal stenosis. 3. Mild posterior disc bulge abutting the ventral cord at C6-C7, slightly accentuating the mild conge nital canal narrowing. 4. No myelopathic cord signal change.
== END | disposition home or self-care (01) ==
LOC: RADMRIMAIN 15:21
PROVIDERS: ATTEND Radiology Diagnostic Radiology
DX: M48.02 Spinal stenosis, cervical region (principal); M50.222 Other cervical disc displacement at C5-C6 level
CPT/HCPCS: 72141

== ENCOUNTER 2020-12-20 05:29 | Observation (INO) | payer MEDICAID ==
[2020-12-20] MEDS ORDERED: HYDROmorphone 1 MG/ML 1 ML SYRINGE IM STA (05:52)
[2020-12-20] MEDS ORDERED: dexAMETHasone 4 MG TAB PO STA (06:03)
--- NOTE | 2020-12-20 06:03 | ED ---
Recheck HPI - General Chief Complaint: Neuro Symptoms/Deficit Stated Complaint: Left arm/shoulder pain Time Seen by Provider: 12/20/20 05:40 Source: patient, RN notes reviewed, old records reviewed Mode of arrival: ambulatory Limitations: no limitations - History of Present Illness Initial Comments: This is a 30-year-old female DF for evaluation of recheck recheck of severe back pain severe neck pain severe or left shoulder pain. No traumatic injury noted no fevers noted. Patient was seen in ER yesterday given symptom control. Patient has again had MRI was scheduled for outpatient follow-up. Patient states pain is significantly worsened overnight has been persistent. He was again no new trauma or injury MD Complaint: other (Left shoulder pain left neck pain left arm pain) -: days(s) Returns Today for: persistent/worsening pain related to initial visit Symptoms Since Prior Visit: worsening pain Context: called for abnormal lab result (Worsening pain, abnormal MRI) Associated Symptoms: none Treatments Prior to Arrival: Given Pain Meds on - Related Data Home Medications Medication Instructions Recorded Confirmed Multivitamins, Thera [Multivitamin 1 tab PO HS 11/07/20 11/07/20 (formulary)] Previous Rx's Medication Instructions Recorded Ciprofloxacin HCl [Cipro] 500 mg PO BID 7 Days #14 tab 11/07/20 metroNIDAZOLE [Flagyl] 500 mg PO TID 7 Days #21 tab 11/07/20 Gabapentin 300 mg PO BID 3 Days #6 cap 12/19/20 predniSONE 50 mg PO DAILY 4 Days #4 tab 12/19/20 Allergies Allergy/AdvReac Type Severity Reaction Status Date / Time Penicillins Allergy Rash/Hives Verified 12/20/20 05:36 Review of Systems ROS Statement: Those systems with pertinent positive or pertinent negative responses have been documented in the HPI. ROS Other: All systems not noted in ROS Statement are negative. Past Medical History Past Medical History: No Reported History Additional Past Medical History / Comment(s): section 3, herniated discs in neck, spinal stenosis History of Any Multi-Drug Resistant Organisms: None Reported Past Surgical History: Breast Surgery, Section Additional Past Surgical History / Comment(s): breast augmentation Past Anesthesia/Blood Transfusion Reactions: No Reported Reaction Past Psychological History: No Psychological Hx Reported Smoking Status: Never smoker Past Alcohol Use History: Rare Past Drug Use History: None Reported - Past Family History Mother Family Medical History: No Reported History General Exam Limitations: no limitations General appearance: alert, in no apparent distress, anxious Head exam: Present: atraumatic, normocephalic, normal inspection Eye exam: Present: normal appearance, PERRL, EOMI. Absent: scleral icterus, conjunctival injection, periorbital swelling ENT exam: Present: normal exam, mucous membranes moist Neck exam: Present: normal inspection. Absent: tenderness, meningismus, lymphadenopathy Respiratory exam: Present: normal lung sounds bilaterally. Absent: respiratory distress, wheezes, rales, rhonchi, stridor Cardiovascular Exam: Present: regular rate, normal rhythm, normal heart sounds. Absent: systolic murmur, diastolic murmur, rubs, gallop, clicks GI/Abdominal exam: Present: soft, normal bowel sounds. Absent: distended, tenderness, guarding, rebound, rigid Extremities exam: Present: normal inspection, full ROM, normal capillary refill. Absent: tenderness, pedal edema, joint swelling, calf tenderness Back exam: Present: normal inspection Neurological exam: Present: alert, oriented X3, CN II-XII intact Psychiatric exam: Present: normal affect, normal mood Skin exam: Present: warm, dry, intact, normal color. Absent: rash Course Vital Signs 12/20/20 05:31 Temperature 97.7 F Pulse Rate 100 Respiratory 22 Rate Blood Pressure 146/102 O2 Sat by Pulse 98 Oximetry - Reevaluation(s) Reevaluation #1: 12/20/20 06:21 Medical records reviewed Reevaluation #2: 12/20/20 06:21 Patient given pain control with no real significant improvement Reevaluation #3: 12/20/20 06:21 Patient agitated at bedside informed results and questions have been answered as well as patient's mother - Consultations Consultation #1: Spoke with Dr. Kingsley will admit this patient Medical Decision Making - Medical Decision Making 30 female to the ER for evaluation patient Dese for evaluation of pain severe back pain neck pain left shoulder pain doubt left arm with no significant weakness. - Radiology Data Radiology results: report reviewed (MRI c spine) Disposition Clinical Impression: Radiculopathy, Left arm pain, Neck pain on left side, Left shoulder pain Disposition: ADMITTED IP TO THIS HOSP Condition: Fair Is patient prescribed a controlled substance at d/c from ED?: No Referrals: None,Stated [Primary Care Provider] - 1-2 days
[2020-12-20] MEDS ORDERED: ONDANSETRON 4 MG/2 ML VIAL IVP PRN (06:11)
[2020-12-20] MEDS ORDERED: SODIUM CHLORIDE 0.9% 1,000 ML IV STA (06:11)
[2020-12-20] MEDS ORDERED: diphenhydrAMINE 50 MG/ML 1 ML VIAL IVP PRN (06:11)
[2020-12-20] MEDS ORDERED: SODIUM CHLORIDE 0.9% 500 ML 500 ML IV STA (06:11)
[2020-12-20] MEDS ORDERED: DEXAMETHASONE SOD PHOSPHATE 10 MG/ML 1 ML VIAL IV STA (06:11)
[2020-12-20] MEDS ORDERED: HYDROmorphone 1 MG/ML 1 ML SYRINGE IVP STA (06:11)
[2020-12-20] MEDS ORDERED: DIAZEPAM 5 MG/ML 2 ML INJ IVP STA (06:11)
[2020-12-20] MEDS ORDERED: diphenhydrAMINE 50 MG/ML 1 ML VIAL IVP STA (06:11)
[2020-12-20] MEDS ORDERED: ONDANSETRON 4 MG/2 ML VIAL IVP STA (06:11)
[2020-12-20] MEDS ORDERED: KETOROLAC 15 MG/ML 1 ML VIAL IVP STA (06:11)
[2020-12-20 06:27] LABS: Basophils % (A) 0 %; Eosinophils # (A) 0.1 k/uL (0-0.7); Eosinophils % (A) 1 %; HCT 45.1 % (34.0-46.0); HGB 15.2 gm/dL (11.4-16.0); Lymphocytes # (A) 1.2 k/uL (1.0-4.8); Lymphocytes % (A) 14 %; MCH 29.1 pg (25.0-35.0); MCHC 33.6 g/dL (31.0-37.0); MCV 86.7 fL (80.0-100.0); Mean Platelet Volume 6.5; Monocytes # (A) 0.3 k/uL (0-1.0); Monocytes % (A) 3 %; Neutrophils # (A) 7.2 k/uL (1.3-7.7); Neutrophils % (A) 81 %; Platelet Count 231 k/uL (150-450); RBC 5.21 m/uL (3.80-5.40); RDW 13.1 % (11.5-15.5); WBC 8.9 k/uL (3.8-10.6)
[2020-12-20 06:36] LABS: INR 0.9 (<1.2); Partial Thromboplastin Time 24.5 sec (22.0-30.0); Prothrombin Time 9.9 sec (9.0-12.0)
[2020-12-20 06:40] LABS: ALT 31 U/L (4-34); AST 26 U/L (14-36); African American GFR (CKD) >90 (>60 ml/min/1.73 sqM); Albumin 4.8 g/dL (3.5-5.0); Alkaline Phosphatase 54 U/L (38-126); Anion Gap 12 mmol/L; Blood Urea Nitrogen 15 mg/dL (7-17); Calcium 9.5 mg/dL (8.4-10.2); Carbon Dioxide 22 mmol/L (22-30); Chloride 105 mmol/L (98-107); Glucose 125 mg/dL (74-99); Non-African American GFR(CKD) >90 (>60 ml/min/1.73 sqM); Phosphorus 2.2 mg/dL (2.5-4.5); Potassium 3.8 mmol/L (3.5-5.1); Sodium 139 mmol/L (137-145); Total Bilirubin 0.5 mg/dL (0.2-1.3); Total Protein 7.8 g/dL (6.3-8.2)
[2020-12-20] MEDS: HYDROmorphone 1 MG/ML 1 ML SYRINGE IVP PRN ×2 (12:40→17:24)
[2020-12-20] MEDS ORDERED: ACETAMINOPHEN TAB 325 MG TAB PO PRN (17:10)
--- NOTE | 2020-12-20 17:24 | P.HPOR ---
History of Present Illness H&P Date: 12/20/20 Chief Complaint: Left upper extremity pain and weakness Patient is a very pleasant 30-year-old female who seen and examined today at bedside. She is actually in the emergency room yesterday with severe pain at her left upper extremity I was able to go home but returned early this morning for the same complaint. Apparently patient started having pain about 2 and half days ago where she had severe pain in her neck and extending down her left arm. She denies any specific trauma or injury. She admits to significant weakness at her left upper extremity. She says the pa in travels down at the base of the left side of her neck around her shoulder down her arm to her hand and fingers over her thumb index and middle finger. She feels significantly weak at the left upper extremity. She is not having problems at her right actually upper extremity. She denies any problems with bowel or bladder function. She denies any changes of breathing. She has any fevers chills. She denies any other illness. She denies any prior problems with her neck or her upper extremity. She denies any headaches or blurry vision. Denies any other weakness. Review of Systems Weakness of left upper extremity. Otherwise her extremities have good strength. Denies change in bowel bladder function. No fevers chills. No prior issues. No prior pain in her neck or left upper extremity. No changes in her voice. Or Speech or vision Past Medical History Past Medical History: No Reported History Additional Past Medical History / Comment(s): section 3, herniated discs in neck, spinal stenosis, diverticulitis History of Any Multi-Drug Resistant Organisms: None Reported Past Surgical History: Breast Surgery, Section Additional Past Surgical History / Comment(s): breast augmentation Past Anesthesia/Blood Transfusion Reactions: No Reported Reaction Past Psychological History: No Psychological Hx Reported Smoking Status: Never smoker Past Alcohol Use History: Rare Past Drug Use History: None Reported - Past Family History Mother Family Medical History: No Reported History Medications and Allergies Home Medications Medication Instructions Recorded Confirmed Type Gabapentin 300 mg PO BID 3 Days #6 cap 12/19/20 12/20/20 Rx predniSONE 50 mg PO DAILY 4 Days #4 tab 12/19/20 12/20/20 Rx Acetaminophen-Codeine 300-30mg 1 tab PO Q6H PRN 02/25/21 02/25/21 History [Tylenol w/codeine #3] Allergies Allergy/AdvReac Type Severity Reaction Status Date / Time Penicillins Allergy Rash/Hives Verified 12/20/20 06:23 Physical Examination Osteopathic Statement: *. No significant issues noted on an osteopathic structural exam other than those noted in the History and Physical/Consult. - C Spine: dermatomal strength & reflexes left Wrist strength: supination: 3/5 (Is weakness to her left biceps. 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 Her right upper extremity bilateral lower extremity is have 5-5 muscle strength throughout. Her deep tendon reflexes on her left upper extremity brachial radialis are diminished. She has 2 over 4 deep tendon reflexes otherwise.) Strength: foreclosure home inspector: 3/5 (At her left upper extremity she has weakness at her left biceps to approximately 3 out of 5 and left foreclosure home inspector with 3 out of 5. She has some weakness at her triceps 4 out of 5. She has negative Wallace's. Her compartments are soft. She has positive Spurling sign.) Reflexes: biceps: grade 1 Results - Labs Labs: Abnormal Lab Results - Last 24 Hours (Table) 12/20/20 Range/Units 06:18 Glucose 125 H (74-99) mg/dL Phosphorus 2.2 L (2.5-4.5) mg/dL H & H 12/20/20 Range/Units 06:18 Hgb 15.2 (11.4-16.0) gm/dL Hct 45.1 (34.0-46.0) % Coagulation 12/20/20 Range/Units 06:18 INR 0.9 (<1.2) Result Diagrams: 12/20/20 06:18 12/20/20 06:18 - Diagnostic results Cervical MRI with contrast: report reviewed, image reviewed (Imaging of the cervical MRI shows a large disc herniations at C5 6 with extruded fragment. There is severe left foraminal stenosis and distortion of the spinal cord.) Assessment and Plan Assessment: Acute C5 6 disc herniation with extruded fragment Severe left foraminal stenosis C5 6 Acute left upper extremity weakness due to disc herniation at C5 6 Left upper extremity radiculopathy Left acute Upper extremity weakness Plan: Acute C5 6 disc herniation with extruded fragment Severe left foraminal stenosis C5 6 Acute left upper extremity weakness due to disc herniation at C5 6 Left upper extremity radiculopathy Left acute Upper extremity weakness The patient has a new C5 6 disc herniation with extruded fragment causing severe stenosis and causing left upper extremity radiculopathy with new onset weakness. She is having severe pain and significant debility due to this pain. She is very trouble due to the weakness at her left upper extremity. I think that the herniation is currently causing the radiculopathy and weakness at left upper extremity. She did not have any specific trauma or injury and seems to have had a spontaneous disc herniation. She has been taking steroid medications and pain medications with minimal relief of her symptoms. She is still in severe pain. She is not had any return of her her strength and feels that her strength is worsening. I discussed at length the nature of her issues in the disc herniation in regards to her neurologic function. She is having acute neurologic loss. Her symptoms are still quite new and she has been treated with steroid medication however she does not seem to be making any significant progress. We discussed various treatments ranging from continued conservative care and possibly epidural steroi d injections and the possibly surgical intervention. Given the patient's weakness is very likely that surgical intervention would give her the best chance of return of strength. Surgery would likely give her relief of her pain symptoms significantly as well. With the size of the disc herniation and her upper extremity changes is difficult to predict if conservative measures would offer her long-term benefit. We discussed this at length today at bedside with her mother present. The patient is interested in proceeding with surgical intervention as soon as possible. I discussed the risk of occasions alternatives and benefits of surgery at length including but not limited to the risk of bleeding risk and infection risk and need for further surgery risk of decreased loss of motion loss of function malunion nonunion hardware failure nerve damage local cord issues hoarseness dysphagia difficulty swallowing as well as the fact that surgery may not alleviate her symptoms as explained. Patient is interested in proceeding with surgical intervention as soon as possible. We will have the patient consented for anterior cervical decompression with discectomy and fusion at C5 6. For Thursday, December 21 We'll make patient nothing by mouth after midnight and obtain medical clearance for her. Answered the patient's questions best my ability G she can understand and she elects to proceed with surgical intervention. Time with Patient: Greater than 30
[2020-12-20 18:42] LABS: Appearance,Urine Clear (Clear); Bilirubin,Urine Negative (Negative); Blood,Urine Negative (Negative); Color,Urine Yellow; Glucose,Urine (UA) Negative (Negative); Ketones,Urine Negative (Negative); Leukocyte Esterase,Urine Negative (Negative); Nitrite,Urine Negative (Negative); Protein,Urine Negative (Negative); Specific Gravity,Urine 1.021 (1.001-1.035); Urobilinogen,Urine <2.0 mg/dL (<2.0)
--- NOTE | 2020-12-20 19:31 | XR ---
EXAMINATION TYPE: XR chest 2V DATE OF EXAM: 12/20/2020 COMPARISON: 01/06/2019. HISTORY: Preoperative clearance for cervical spine fusion. TECHNIQUE: Frontal and lateral views of the chest are obtained. FINDINGS: There is mild bibasilar hazy opacity, consistent with atelectasis. No focal infiltrate, pl eural effusion, or pneumothorax seen. The cardiac silhouette size is within normal limits. The oss eous structures are intact. IMPRESSION: No acute cardiopulmonary process.
[2020-12-20] MEDS: GABAPENTIN 300 MG CAP PO SCH (20:22)
[2020-12-21] MEDS: Acetaminophen-Codeine 300-30mg TAB PO PRN ×2 (01:47→20:33)
[2020-12-21] MEDS: HYDROmorphone 1 MG/ML 1 ML SYRINGE IVP PRN (07:10)
--- NOTE | 2020-12-21 09:16 | P.CONS ---
History of Present Illness - Reason for Consult Consult date: 12/21/20 pre-op clearance Requesting physician: Elvira Kingsley - Chief Complaint left arm pain and weakness - History of Present Illness A 30-year-old female with known diverticulitis currently in remission, obesity with BMI 37.9, and prior C-sections who presented with left arm and neck pain. She was admitted to Dr. Kingsley plans are for anterior cervical discectomy with fusion. We are asked to consult for medical clearance. Patient seen and examined at bedside. She reports that 3 days ago she performed a lot of breast ultrasounds requiring abnormal positioning. She then developed neck pain that day and took Tylenol. She went to sleep and the next day he awoke with significant neck pain, left arm pain, and weakness. She was initially seen in the ER and subsequently sent home with steroids. She continued to have worsening neck pain and represented. No chest pain, no syncope, no shortness of breath Able to climb one flight of stairs without difficulty ABle to walk 4 city blocks without difficulty No recent cough, cold, fever, flu, nausea, vomiting, diarrhea. Review of Systems Pertinent positives and negatives as discussed in HPI, a complete review of systems was performed and all other systems are negative. Past Medical History Additional Past Medical History / Comment(s): section 3, herniated discs in neck, spinal stenosis, diverticulitis History of Any Multi-Drug Resistant Organisms: None Reported Past Surgical History: Breast Surgery, Section Additional Past Surgical History / Comment(s): breast augmentation Past Anesthesia/Blood Transfusion Reactions: No Reported Reaction Past Psychological History: No Psychological Hx Reported Smoking Status: Never smoker Past Alcohol Use History: Occasional Past Drug Use History: None Reported - Past Family History Mother Family Medical History: No Reported History Medications and Allergies Home Medications Medication Instructions Recorded Confirmed Type Gabapentin 300 mg PO BID 3 Days #6 cap 12/19/20 12/20/20 Rx predniSONE 50 mg PO DAILY 4 Days #4 tab 12/19/20 12/20/20 Rx Acetaminophen-Codeine 300-30mg 1 tab PO Q6H PRN 12/20/20 12/20/20 History [Tylenol w/codeine #3] Allergies Allergy/AdvReac Type Severity Reaction Status Date / Time Penicillins Allergy Rash/Hives Verified 12/20/20 06:23 Physical Exam Osteopathic Statement: *. No significant issues noted on an osteopathic structu ral exam other than those noted in the History and Physical/Consult. Vitals: Vital Signs Temp Pulse Resp BP Pulse Ox 12/21/20 06:56 97.8 F 88 16 136/83 100 12/21/20 00:53 97.9 F 80 16 126/76 93 L 12/20/20 19:40 98.2 F 100 16 144/91 97 12/20/20 19:21 16 12/20/20 17:11 97.8 F 88 16 136/83 100 12/20/20 15:00 98 F 107 H 16 158/89 94 L 12/20/20 14:00 94 16 Intake and Output 12/20/20 12/21/20 12/21/20 22:59 06:59 14:59 Other: # Voids 2 General: non toxic, mild distress secondary to pain, appears at stated age Derm: warm, dry Head: atraumatic, normocephalic, symmetric Eyes: EOMI, no lid lag, anicteric sclera, pupils equal round reactive to light ENT: Nose and ears atraumatic, no thrush, no pharyngeal erythema Neck: No thyromegaly, no cervical lymphadenopathy, trachea midline, supple Mouth: no lip lesion, mucus membranes moist Cardiovascular: S1S2 reg, no murmur, positive posterior tibial pulse bilateral, no edema, capillary refill less than 2 seconds Lungs: clear to ascultation bilateral, no ronchi, no rales, no wheeze, no accessory muscle use Abdominal: soft, nontender to palpation, no guarding, no appreciable organomegaly, normal bowel sounds Ext: no gross muscle atrophy, muscle strength muscle strength 5 out of 5 in all 4 extremities, no contractures Neuro: CN II-XI grossly intact, light touch intact all 4 extremities and bilateral face, muscle strength 5 out of 5 in bilateral lower extremities muscle strength 5 out of 5 in right upper extremity, muscle strength testing limited and left upper extremity secondary to pain Psych: Alert, oriented, appropriate affect Results CBC & Chem 7: 12/20/20 06:18 12/20/20 06:18 Comments: MRI neck reviewed form 12/19/20 Assessment and Plan Assessment: Intractable neck and left arm pain due to cervical stenosis due to C5/6 disc herniation with severe formanial stenosis and left upper extremity radiculopathy - pre-op eval: Patient is medically optimized for surgery no additional testing necessary - NSQIP risk calculator completed and patient is below risk for surgical complications - EKG reviewed NSR, no inshcemic changes. - managmenet per Ortho Spine Obesity with BMI 37.9 - structured outpatient weight loss Elevated BP without HTN - likely due to pain will follow with Dr. Forde on discharge. Thank you for allowing us to participate in the care of this pleasant patient. Do not hesitate to contact us with questions. Someone can be reached from the [facility] hospitalist group all hours of the day at [phone] or via [email or web address].
[2020-12-21] MEDS: GABAPENTIN 300 MG CAP PO SCH ×2 (09:38→20:33)
[2020-12-21] MEDS: predniSONE 50 MG TAB PO SCH (09:38)
[2020-12-21] MEDS ORDERED: LACTATED RINGERS 1,000 ML IV ONE (11:40)
[2020-12-21] MEDS ORDERED: SUCCINYLCHOLINE CHLORIDE VIAL 200 MG/10 ML VIAL IV ONE (12:04)
[2020-12-21] MEDS ORDERED: LIDOCAINE 1% INJ 10MG/ML (20 ML MDV) ONE (12:04)
[2020-12-21] MEDS ORDERED: HYDROmorphone (PF) 1 MG/ML ONE (12:04)
[2020-12-21] MEDS ORDERED: MIDAZOLAM 2 MG/2 ML VIAL ONE (12:04)
[2020-12-21] MEDS ORDERED: PROPOFOL 10 MG/ML 20 ML VIAL IV ONE (12:04)
[2020-12-21] MEDS ORDERED: fentaNYL (PF) 50 MCG/ML 2 ML AMP ONE (12:04)
[2020-12-21] MEDS ORDERED: GELATIN SPONGE,ABSORB (LARGE) 1 EACH SPONGE TOPICAL ONE (12:10)
[2020-12-21] MEDS ORDERED: LIDOCAINE 0.5%-EPI 1:200,000 50 ML VIAL SQ ONE (12:10)
[2020-12-21] MEDS ORDERED: THROMBIN (BOVINE) 5,000 UNIT VIAL TOPICAL ONE (12:10)
[2020-12-21] MEDS ORDERED: ceFAZolin 1,000 MG VIAL IVPB ONE (12:15)
[2020-12-21] MEDS ORDERED: ceFAZolin 1,000 MG in SODIUM CHLORIDE 0.9% 1,000 ML IRRIGATION ONE (12:39)
[2020-12-21] MEDS ORDERED: MAG HYDROX/AL HYDROX/SIMETH 30 ML CUP PO PRN (14:07)
[2020-12-21] MEDS ORDERED: HYDROmorphone 0.5 MG/0.5 ML SYRINGE IVP PRN (14:07)
[2020-12-21] MEDS ORDERED: BENZOCAINE/MENTHOL LOZENG 1 EACH LOZENGE MUCOUS MEM PRN (14:07)
--- NOTE | 2020-12-21 14:08 | XR ---
Cervical spine HISTORY: Status post anterior cervical fusion and discectomy Single lateral view of the cervical spine correlated prior exam same dated earlier time Patient is status post anterior cervical fusion and discectomy at C5-6. There is anatomic alignment. C7-T1 is not seen. Endotracheal tube and probe, leads noted incidentally. IMPRESSION: Orthopedic follow-up.
--- NOTE | 2020-12-21 14:09 | XR ---
Cervical spine HISTORY: Needle placement Single lateral view the cervical spine noted. There is a needle in near proximity to the C5-6 disc sp christina. Endotracheal tube is in place. There are overlying leads. Lower cervical spine is not seen. IMPRESSION: Orthopedic localization.
--- NOTE | 2020-12-21 14:13 | P.OP ---
Date of Procedure: 12/21/20 Preoperative Diagnosis: Acute herniated nucleus pulposis C5 6 with extruded fragment, left upper extremity weakness, left upper extremity radiculopathy, left upper extremity pain, neck pain Postoperative Diagnosis: Acute herniated nucleus pulposis C5 6 with extruded fragment, left upper extremity weakness, left upper extremity radiculopathy, left upper extremity pain, neck pain Anesthesia: GETA Pathology: none sent Condition: stable Description of Procedure: BRIEF OPERATIVE NOTE Preoperative Diagnosis:Acute herniated nucleus pulposis C5 6 with extruded fragment, left upper extremity weakness, left upper extremity radiculopathy, left upper extremity pain, neck pain Postoperative Diagnosis:Acute herniated nucleus pulposis C5 6 with extruded fragment, left upper extremity weakness, left upper extremity radiculopathy, left upper extremity pain, neck pain Procedure: Anterior cervical decompression with discectomy and fusion C5 6 Placement of interbody graft Application of anterior cervical plate C5 6 Surgeon: Dr. Kingsley Sandblast Or Shotblast Equipment Tender: Horacio Gonzalez is present throughout the entire the case persistence during positioning, dissection, exposure, visualization, and all crucial elements of the case as well as closure. Anesthesia: General anesthesia Estimated blood loss: Approximately 50 mL Complications: None apparent Components implanted: K2M Fallon anterior cervical plate system with Vikos allograft bone graft Disposition: To recovery room in good stable condition. OPERATIVE INDICATIONS The patient has had acute new onset issues in their neck and upper extremities. It started a few days ago when the patient woke up with severe pain at her left upper extremity. Her pain was unrelenting presented to the emergency room where she had evaluation was found to have radicular symptoms and was able to be sent home with medications and follow-up. Unfortunate patient continued have unrelenting pain and presented back to the emergency room where she was found have continued symptoms and some evidence weakness at her left upper extremity. 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 Her pain was quite severe despite medications and steroid medication. She was having significant weakness at her left upper extremity which she felt was worsening to some degree. We discussed various treatment options and with her pain and her new onset weakness we felt that the possibility of surgery was a reasonable one for her. I discussed with her the risks, occasions various treatment options ranging from conservative to surgical. We discussed the nature the possible improvement with time, with the possibility of medications and interventional pain management, as well as the possibly improvement with surgery. We felt the best chance of her gaining her strength back would likely be with surgical intervention and formal decompression. We discussed various treatment options including surgery, and the patient wishes to proceed with surgery We discussed the risk, patient's alternatives and benefits of surgery including but not limited to, risk of bleeding risk of infection, risk of need for further surgery, risk of decreased, loss of motion, muscle function, malunion nonunion, hardware failure, nerve damage, paralysis, heart attack, and . The patient elected to proceed with surgical intervention and signed informed consent OPERATIVE SUMMARY After discussing all the risks, patient alternatives and benefits at length, the patient elected to proceed with surgical intervention, signed informed consent, and presented for their procedure. The patient was seen and examined in the preoperative holding area and the surgical site was marked. The patient was given antibiotics and brought to the operating room. The patient was positioned on the operating room table in a supine position being careful to pad any bony prominences and pressure points. The patient was sedated and intubated by anesthesia in standard fashion. Once the airway and C- spine were stabilized the patient's arms were padded and tucked at her side, with her shoulders gently taped. The head was placed in a donut pad with the neck in good neutral alignment and position. We were careful to maintain the patient's cervical spine and good neutral alignment and position throughout. The patient was prepped and draped in a normal standard fashion. An appropriate timeout and keystone protocol performed. We were able to proceed with the surgery. The local wound area was infiltrated with local anesthetic at C5 6. An incision was made transversely approximately 2-1/2 cm over the appropriate levels at C5 6. Dissection was taken down subcutaneously to the level of the platysma which was split in line with its fibers. Dissection was taken with a carotid approach, with the trachea and esophagus medial and the carotid sheath laterally. We dissected down to the anterior surface of the vertebral bodies. Intraoperative x-ray was taken which showed a marker at the appropriate level at the inferior vertebral body of C5. With the appropriate level positively confi rmed, we were able to proceed with discectomy at the appropriate levels of C5 6. All of the operative levels were exposed appropriately. The patient had all their twitches back, and there was no evidence of recurrent laryngeal issue. The wound was copiously irrigated and suctioned dry as had been done periodically throughout the case. At the appropriate level/levels, of C5 6 I established an annulotomy with an 11 blade scalpel. A discectomy was performed with a combination of pituitary rongeurs, curettes, a high-speed bur, and Kerrison rongeurs. The posterior longitudinal ligament was taken down as were any posterior osteophytes. Note was made of a very obvious large disc herniation with extruded fragment on the left side as seen on the MRI. I was able to mobilize this fragment and remove it which gave good decompression at the left and left foramen. I removed further osteophytes and posterior longitudinal ligament. This gave good central and bilateral foraminal decompression. There is no evidence of any dural tear or leak. The endplates were prepared with a high-speed bur. With the endplates in good parallel position, I was able to size for the appropriate size interbody graft. The wound was irrigated and suctioned dry the graft was prepared and malleted into position. It had good alignment and position with the anterior surface flush with the anterior surface of the vertebral bodies. With the grafts intact, I was able to measure and contour and appropriate sized plate. The plate was positioned at the midline over the appropriate levels of C5 6. Screw holes were established with a hand drill and drill guide. Screws were placed in good alignment and position with excellent bony purchase. They were seated under the locking device. The construct was checked and found to be stable. Intraoperative x-ray was taken which showed good alignment and position of the implants at the appropriate levels. There was no evidence of any dural tear or leak. Good hemostasis was maintained. The wound was copiously irrigated and suctioned dry as had been done periodically throughout the case. The platysma was closed with absorbable suture. The subcutaneous tissue was closed. The subcuticular tissue was closed with absorbable suture. The wound was cleaned and dried and dressed appropriately. A soft cervical collar was placed appropriately. The patient was woken up by anesthesia, extubated, transferred back gently to their hospital bed and brought to the recovery room in good stable condition. The patient will be admitted to the hospital for appropriate postoperative care, medical management and monitoring. We will continue to follow them closely about the postoperative course.
[2020-12-21] MEDS: SODIUM CHLORIDE 0.9% 1,000 ML IV SCH (16:21)
[2020-12-21] MEDS: HYDROcodone/APAP 5-325MG 1 EACH TAB PO PRN (17:39)
[2020-12-22] MEDS: HYDROcodone/APAP 5-325MG 1 EACH TAB PO PRN (00:46)
[2020-12-22] MEDS: SODIUM CHLORIDE 0.9% 1,000 ML IV SCH (05:36)
[2020-12-22] MEDS: Acetaminophen-Codeine 300-30mg TAB PO PRN (05:55)
[2020-12-22 07:43] VITALS: BP 154/86; PULSE 79; RESP 18; TEMP 97.8
[2020-12-22] MEDS: predniSONE 50 MG TAB PO SCH (08:17)
[2020-12-22] MEDS: GABAPENTIN 300 MG CAP PO SCH (08:17)
[2020-12-22] MEDS ORDERED: SENNOSIDES-DOCUSATE SODIUM 1 EACH TAB PO SCH (09:00)
--- NOTE | 2020-12-29 09:17 | P.DS ---
Providers Date of admission: 12/20/20 06:13 Attending physician: Elvira Kingsley Consults: 12/20/20 17:10 Consult Physician Routine Consulting Provider: Mehnaz Forde Consult Reason/Comments: Medical clearance for surgery Do you want consulting provider notified?: Yes 12/21/20 08:17 Consult Physician Urgent Consulting Provider: Jocelyn Padilla Consult Reason/Comments: medical clearance Do you want consulting provider notified?: Yes Primary care physician: Stated None Hospital Course: The patient presented on the day of admission as per their operative note. She had a herniated nucleus pulposis at her cervical spine and underwent surgical decompression discectomy as per her operative note. She feels she is making good progress in terms of her upper extremity symptoms. Her neck has some so reness around the site as expected. Physical Exam The incision site is clean dry and intact. There is no erythema no drainage. There is no purulence no evidence of infection.Her neck is soft and supple. His no significant swelling Abdomen soft and nontender. Chest has good excursion with deep inspiration and expiration. The patient has active and passive range of motion intact at the upper and lower extremities. There is no acute change in neurologic status. She has good motion in her upper extremities Hospital Course Status post anterior cervical decompression with discectomy and fusion for herniated nucleus pulposis with upper extremity radiculopathy and weakness. The patient has been making good progress postoperatively. They have completed the prophylactic antibiotics without any signs or symptoms of infection. The patient has been able to advance their diet, and is tolerating diet adequately. The pain was initially controlled with IV medications and is now controlled appropriately with oral medications. The patient has been able to increase their mobilization. The patient has progressed appropriately. I think they are in good stable condition for discharge today. They will be sent home with appropriate prescriptions. I answered their questions to the best of my ability in a language that they can understand and they are agreeable with the plan. They will follow up as directed. Patient Condition at Discharge: Fair Plan - Discharge Summary Discharge Rx Participant: Yes New Discharge Prescriptions: New methylPREDNISolone [Medrol Dose Pack] 4 mg PO DIRECTED #1 pack HYDROcodone/APAP 5-325MG [[place] 5] 1 each PO Q6HR PRN #28 tab PRN Reason: Pain No Action Gabapentin 300 mg PO BID 3 Days #6 cap predniSONE 50 mg PO DAILY 4 Days #4 tab Acetaminophen-Codeine 300-30mg [Tylenol w/codeine #3] 1 tab PO Q6H PRN PRN Reason: Pain Discharge Medication List Gabapentin 300 mg PO BID 3 Days #6 cap 12/19/20 [Rx] predniSONE 50 mg PO DAILY 4 Days #4 tab 12/19/20 [Rx] Acetaminophen-Codeine 300-30mg [Tylenol w/codeine #3] 1 tab PO Q6H PRN 12/20/20 [History] HYDROcodone/APAP 5-325MG [[place] 5] 1 each PO Q6HR PRN #28 tab 12/21/20 [Rx] methylPREDNISolone [Medrol Dose Pack] 4 mg PO DIRECTED #1 pack 12/21/20 [Rx] Follow up Appointment(s)/Referral(s): Elvira Kingsley DO [Doctor of Osteopathic Medicine] - 2 Weeks (Office is currently closed, please call Thursday am to schedule your appointment.) None,Stated [Primary Care Provider] - 1-2 days Mehnaz Forde MD [STAFF PHYSICIAN] - 1 Week (Office is currently closed, please call the office Thursday am to schedule your appointment.) Patient Instructions/Handouts: Cervical Disc Herniation (DC) Activity/Diet/Wound Care/Special Instructions: Keep site clean. May shower with waterproof Tegaderm intact. Do not soak in a tub. After 72 hours postoperatively, patient May remove dressing and then may shower with area uncovered. Leave Steri-Strips intact and allow them to fray off on their own. May ambulate as tolerated. Avoid heavy or rigorous activity. No repetitive bending twisting or lifting. No overhead work. Discharge Disposition: HOME SELF-CARE
== END 2020-12-22 09:43 | disposition home or self-care (01) ==
LOC: EC 05:29 → 6NMEDSUR 06:13
PROVIDERS: ADMIT Orthopaedic Surgery Orthopaedic Surgery of the Spine; ATTEND Orthopaedic Surgery Orthopaedic Surgery of the Spine
DX: M50.122 Cervical disc disorder at C5-C6 level with radiculopathy (principal); M48.02 Spinal stenosis, cervical region; R79.9 Abnormal finding of blood chemistry, unspecified; K57.92 Diverticulitis of intestine, part unspecified, without perforation or abscess without bleeding; E66.9 Obesity, unspecified; Z68.37 Body mass index [BMI] 37.0-37.9, adult; Z79.899 Other long term (current) drug therapy; Z98.891 History of uterine scar from previous surgery; Z20.822 Contact with and (suspected) exposure to COVID-19
CPT/HCPCS: 22551; 22853; 96376; 93005; 96372; 96374; 96375; 99285; 36415; 86900; 86901; 80053; 83735; 84100; 85025; 85610; 85730; 86850; 81003; 81025; 87635; 72020; 71046; G0378 ×3; C1713; C1762; J8540; J2250; J0330; J1200; J1100; J3360; J0690 ×3; J2405; J2001; J3010; J1170 ×3; J1885; J2704; J7512 ×2

== ENCOUNTER 2021-02-13 10:33 | Day surgery (SDC) | payer MEDICAID ==
[2021-02-08 13:25] VITALS: BMI 37.9
[~2021-02-13 10:33] MED LIST changes: -CITRIC ACID-SODIUM CITRATE 15 ML CUP PO ONE; -CLINDAMYCIN 600 MG in DEXTROSE 5% IN WATER 50 ML IVPB STA; -LACTATED RINGERS 1,000 ML IV ONE; +LACTATED RINGERS 1,000 ML IV SCH; +LIDOCAINE 1% (10MG/ML) FOR IV START INTRADERMA PRN
[2021-02-13 11:11] VITALS: TEMP 98.7
[2021-02-13] MEDS ORDERED: PROPOFOL 10 MG/ML 20 ML VIAL IV ONE (11:48)
--- NOTE | 2021-02-13 12:02 | P.PCN ---
Date of Procedure: 02/13/21 Procedure(s) Performed: BRIEF HISTORY: Patient is a 30-year-old pleasant white female scheduled for an elective colonoscopy as a part of evaluation of chronic diarrhea of several years duration. Recently had an episode of acute colitis/diverticulitis and was treated with antibiotics. PROCEDURE PERFORMED: Colonoscopy. PREOPERATIVE DIAGNOSIS: Chronic diarrhea and recent episode of acute colitis/diverticulitis. IV sedation per Anesthesia. PROCEDURE: After informed consent was obtained, the patient, was brought into the endoscopy unit. IV sedation was administered by Anesthesia under continuous monitoring. Digital rectal examination was normal. Initially the Olympus CF-160 flexible video colonoscope was then inserted in the rectum, gradually advanced into the cecum without any difficulty. Careful examination was performed as the scope was gradually being withdrawn. Ileocecal valve and the appendiceal orifice were visualized and appeared normal. Terminal ileum was intubated and appeared normal Prep was excellent. Mucosa of the cecum, ascending colon, transverse colon, descending colon, sigmoid colon, and rectum appeared normal. Biopsies were done from ascending and descending colon to rule out microscopic/collagenous colitis. Retroflexion was performed in the rectum and no lesions were seen. The patient tolerated the procedure well. IMPRESSION: Normal-appearing colon from rectum to cecum with no evidence of colitis or colorectal neoplasia . No evidence of diverticulosis. Normal terminal ileum. RECOMMENDATIONS: Findings of this examination were discussed with the patient as well as a family. She was advised to follow with the biopsy results. She'll be seen in office in 2 weeks..
[2021-02-13 12:27] VITALS: BP 99/62; PULSE 78; RESP 16
== END 2021-02-13 12:38 | disposition home or self-care (01) ==
LOC: ORWHC2ENDO 10:33
PROVIDERS: ATTEND Internal Medicine Gastroenterology
DX: K52.9 Noninfective gastroenteritis and colitis, unspecified (principal); Z88.0 Allergy status to penicillin
CPT/HCPCS: 88305; 45380; J2704

== ENCOUNTER → 2021-07-15 | Outpatient (CLI) | payer MEDICAID, OTHER | END | disposition home or self-care (01) | LOC: LABWHC1 11:50 | PROVIDERS: ATTEND Emergency Medicine | DX: Z20.822 Contact with and (suspected) exposure to COVID-19 (principal) | CPT/HCPCS: 87635 ==